=== PATIENT | female | born 1960 | race Caucasian/White ===

== ENCOUNTER 2018-11-15 10:46 | Inpatient (IN) ==
[2018-11-15] MEDS ORDERED: 0.9 % Sodium Chloride 1,000 ML IVC ONE ×2 (11:20→12:06)
--- NOTE | 2018-11-15 11:32 | Emergency Department Note ---
Disposition Clinical Impression: Marijuana abuse, Medical non-compliance, History of seizure disorder, Abnormal chest x-ray, Abnormal urinalysis, Endotracheally intubated, Hypokalemia, Abnormal EKG, Altered mental status, Hypotension Disposition: Admitted As Inpatient Time of Disposition: 15:00 General Adult HPI - General Chief complaint: ED Overdose Stated complaint: unresponsive Time Seen by Provider: 11/15/18 11:20 Source: other Limitations: physical limitation - History of Present Illness HPI Narrative: 58-year-old female reports emergency department, a police patrol officer brought her inside from the front of the ED from a truck with concerns for unresponsiveness. The police patrol officer was not sure exactly what happened, the patient's was in the truck, there are reports she has a history of seizures. On arrival to the emergency department the patient is unable to give a history. Pain Scale: 0 - Related Data Home Medications Medication Instructions Recorded Confirmed Bisoprolol/Hydrochlorothiazide 1 each PO DAILY 11/15/18 11/15/18 [Bisoprolol-Hctz 10-6.25 mg Tab] LevETIRAcetam [Keppra] 1,000 mg PO BID 11/15/18 11/15/18 Lovastatin [Mevacor] 20 mg PO HS 11/15/18 11/15/18 OXcarbazepine [Trileptal] 600 mg PO BID 11/15/18 11/15/18 Paroxetine HCl [Paxil] 40 mg PO DAILY 11/15/18 11/15/18 Topiramate [Topamax] 100 mg PO TID 11/15/18 11/15/18 Allergies Allergy/AdvReac Type Severity Reaction Status Date / Time No Known Allergies Allergy Verified 02/08/15 18:26 Limitations: ROS unobtainable due to patients medical condition Past Medical History - Past Medical History Medical history: Reports: hypertension, seizures, other Psychiatric history: Reports: no psych history [employer] history: Reports: no [employer] history - Social History Smoking Status: Current every day smoker Smokeless Tobacco Status: No Alcohol use: Reports: none Drug use: Reports: none Physical Exam - General Limitations: physical limitation General appearance: obtunded, other ([place] 7, the patient is displaying sonorous respirations with saliva about the mouth. She does not respond to verbal stimulus.) - Head Head exam: atraumatic, normocephalic, normal inspection - Eye Eye exam: Present: normal appearance, PERRL, EOMI. Absent: scleral icterus, miosis - ENT ENT exam: normal exam, normal oropharynx, mucous membranes moist, TM's normal bilaterally, normal external ear exam - Neck Neck exam: Present: normal inspection, full ROM, trachea midline - Chest Chest inspection: Present: normal inspection, symmetric chest wall rise. Absent: tenderness - Respiratory Respiratory exam: Present: other (Lungs show generally decreased breath sounds, sonorous respirations are noted.) - Cardiovascular Cardiovascular exam: Present: regular rate, normal rhythm, normal heart sounds - Abdominal Exam Abdominal exam: Present: soft, Non-Tender. Absent: tenderness, distention, guarding, rebound, rigidity, trauma - Extremities Exam Extremities exam: Present: normal inspection, full ROM, normal capillary refill. Absent: tenderness, pedal edema, joint swelling, calf tenderness - Expanded Upper Extremity Exam Shoulder exam: Present: normal inspection, full ROM Arm exam: Present: normal inspection, full ROM Elbow exam: Present: normal inspection, full ROM Forearm/Wrist exam: Present: normal inspection, full ROM Hand exam: Present: normal inspection, full ROM - Expanded Lower Extremity Exam Hip/Pelvis exam: Present: normal inspection, full ROM Upper leg exam: Present: normal inspection, full ROM Knee exam: Present: normal inspection, full ROM Lower leg exam: Present: normal inspection, full ROM Ankle exam: Present: normal inspection, full ROM Foot/toe exam: Present: normal inspection, full ROM Neurovascular/Tendon exam: Present: normal capillary refill. Absent: pulse deficit, motor deficit, sensory deficit, tendon deficit, extremity cold to touch, pallor - Back Exam Back exam: Present: normal inspection, full ROM. Absent: tenderness, CVA tenderness (R), CVA tenderness (L), vertebral tenderness - Neurological Exam Neurological exam: Present: CN II-XII intact, other (The patient occasionally moves her upper and lower extremities spontaneously. The patient does not appear to be actively convulsing.). Absent: alert, oriented X3 - Skin Skin exam: Present: warm, dry, intact, normal color Course Course Narrative: The patient's blood pressure was in the 80s systolic, IV access was established IV fluids were given blood glucose in the 190s, Narcan given with no significant improvement response. Based on the patient's sonorous respirations, Pushpa Coma Scale 7, the decision to intubate was made. Eomidate and rocuronium were given. The patient was continually monitored, initial attempts at intubation revealed probable esophageal intubation by myself., Further Visualization and Intubation attempts were Made without Success. The Patient Was Bagged and Respiratory Staff Attempted to Intubate, ET Tube Was Placed However after Reassessment It Appeared to Be Nonfunctional. The Tube Was Removed Patient Was Bagged with an Oral Airway. Third Intubation Attempt Made by Dr. Pako Martinez Who Was Able to Use a Video Scope and Successfully Placed the Tube. - Reevaluation(s) Reevaluation #1: The patient's vital signs stabilized, her came into the emergency department and reports that she has a known history of seizure disorder. He s tates she takes multiple medications which may cause sedation. She has not had a seizure for quite some time, he was bringing her to the hospital to be evaluated at an outpatient appointment when she became unresponsive. He did describe seizure-like activity but no trauma is reported. Vital Signs Pulse Rate 93 11/15/18 10:51 Blood Pressure 88/60 11/15/18 10:51 O2 Sat by Pulse Oximetry 100 11/15/18 10:51 Temperature 99.1 F 11/15/18 15:06 Pulse Rate 82 11/15/18 17:00 Respiratory Rate 17 11/15/18 17:00 Blood Pressure 128/87 11/15/18 17:00 O2 Sat by Pulse Oximetry 100 11/15/18 17:00 Oxygen Delivery Oxygen Delivery Ventilator Medical Decision Making - [facility] Narrative Medical decision making narrative: The patient was unresponsive with a Pushpa Coma Scale of 7 when she arrived, sonorous respirations were noted. The patient was endotracheally intubated and further evaluation and testing were performed. CT head negative CT cervical spine negative. Chest x-ray shows potential infiltrative changes abnormal urinalysis noted, IV fluids were given. The patient was placed on a propofol postintubation drip, she became somewhat agitated and Ativan was given 2 separate doses with Versed drip. The patient is a known history of seizure disorders and a vagal stimulator. Based on the patient's acute confusion, depressed mental status, initial hypotension, abnormal chest x-ray, abnormal urinalysis, with potential positive sepsis criteria, and a history of seizures with potential ongoing seizures and/or postictal state, I thought it would be appropriate to admit the patient to the hospital. The patient's EKG was highly abnormal, acidosis noted, hypokalemia noted. Potassium was ordered. Magnesium levels normal. Blood cultures were sent. I discussed the case with the neurology APC who came to evaluate the patient emergency department. They will act as wealth management consultant service. I discussed the case with the hospitalist on-call who has accepted the patient to their care. After consultation with the hospitalist regarding antibiotic choice, Zosyn and Flagyl were ordered but after consultation with the pharmacist, they felt Zosyn would be sufficient. The patient has QT abnormalities on her EKG, Levaquin and azithromycin were avoided as the patient is also taking other medications which may affect QT interval. The patient was given IV fluids and IV antibiotics in the emergency department. I spoke with multiple family members who are here at the bedside and answered her questions to their satisfaction. They are comfortable having the patient admitted here. The patient was admitted to the hospitalist service with neurology consult. The patient's reports the patient has not been taking her medication properly, he states that she is trying to save money and taking less medication than she has been prescribed. - Lab Data Lab results reviewed: Yes I reviewed the patient's lab results. Result diagrams: 11/15/18 10:48 11/15/18 10:48 Lab Results 11/15/18 11/15/18 11/15/18 Range/Units 10:48 10:48 10:49 WBC 11.6 H (4.3-11.1) K/mcL RBC 4.38 (3.82-4.97) M/mcL Hgb 13.5 (11.5-15.4) g/dL Hct 41.3 (35.3-44.9) % MCV 94.3 (83.0-100.0) fL MCH 30.8 (28.0-33.3) pg MCHC 32.7 (31.6-35.5) g/dL RDW 14.2 (11.5-14.5) % Plt Count 304 (140-400) K/mcL MPV 8.5 L (9.4-12.4) fL Immature Gran % 0.4 (0-4) % Seg Neutrophils % 57.3 % Lymphocytes % 34.8 % Monocytes % 6.9 % Eosinophils % 0.3 % Basophils % 0.3 % Neutrophils # 6.6 (1.6-8.9) K/mcL Lymphocytes # 4.0 (0.6-4.6) K/mcL Monocytes # 0.8 (0.0-1.3) K/mcL Eosinophils # 0.0 (0.0-0.6) K/mcL Basophils # 0.0 (0.0-0.2) K/mcL Sample Site ABG pH (7.32-7.45) pH Units ABG pCO2 (35-45) mmHg ABG pO2 (85-104) mmHg ABG HCO3 (21-27) mEq/L ABG Total CO2 (20-26) mEq/L ABG O2 Saturation (95-98) % ABG Base Excess (-2 to 3) mEq/L Jose Test Respiration Rate O2 Delivery Device Blood Gas Modality Inspired O2 (1-15=lpm [id number]=%) Tidal Volume cc PEEP cm H2O Sodium 135 L (136-145) mEq/L Potassium 2.9 L (3.5-5.1) mEq/L Chloride 100 (98-107) mEq/L Carbon Dioxide 12 L (23-29) mEq/L BUN 11 (6-20) mg/dL Creatinine 1.04 (0.60-1.20) mg/dL Est GFR ( Amer) > 60 (> 60) Est GFR (Non-Af Amer) 55 L (> 60) BUN/Creatinine Ratio 11 (6-26) Glucose 179 H (70-105) mg/dL POC Glucose 175 H (70-99) mg/dL Calculated Osmolality 284 (280-300) Lactic Acid (0.5-2.2) mmol/L Calcium 9.2 (8.6-10.3) mg/dL Magnesium 2.2 (1.6-2.6) mg/dL Total Bilirubin 0.4 (0.3-1.0) mg/dL AST 23 (13-39) Units/L ALT 11 (7-52) Units/L Alkaline Phosphatase 76 (34-104) Units/L Ammonia (16-53) mcmol/L Troponin I 0.03 (< 0.04) ng/mL C-Reactive Protein (Less than 10) mg/L Serum Total Protein 7.5 (6.4-8.9) g/dL Albumin 4.3 (3.5-5.7) g/dL Globulin 3.2 (2.4-3.5) g/dL Albumin/Globulin Ratio 1.3 (1.1-2.2) Urine Color (Yellow) Urine Clarity (Clear) Urine pH (5.0-8.0) pH Units Ur Specific Craig (1.010-1.025) Urine Protein (Neg-Trace) mg/dL Urine Glucose (UA) (Normal) mg/dL Urine Ketones (Negative) mg/dL Urine Blood (Negative) Urine Nitrite (Negative) Urine Bilirubin (Negative) Urine Urobilinogen (Normal) mg/dL Ur Leukocyte Esterase (Negative) Urine Microscopic RBC (0-3) per hpf Urine Microscopic WBC (0-3) per hpf Ur Squamous Epith Cells (None-Few) per lpf Urine Bacteria (None-Few) per hpf Hyaline Casts (None-Few) per lpf Urine Mucus (Few) Ur Culture Indicated? (NO) Salicylates (15.0-30.0) mg/dL Urine Opiates Screen (Nfdaos=767) ng/mL Ur Buprenorphine Scrn (Cutoff=5) ng/mL Acetaminophen (10-20) mcg/mL Ur Barbiturates Screen (Sjepxh=919) ng/mL Ur Phencyclidine Scrn (Cutoff=25) ng/mL Ur Amphetamines Screen (Mvhxqf=8452) ng/mL U Benzodiazepines Scrn (Glghjz=247) ng/mL Urine Cocaine Screen (Cutoff= 300) ng/mL U Marijuana (THC) Screen (Cutoff = 50) ng/mL Ur Drug Screen Interp Ethyl Alcohol (Less than 10) mg/dL 11/15/18 11/15/18 11/15/18 Range/Units 11:20 11:20 11:33 WBC (4.3-11.1) K/mcL RBC (3.82-4.97) M/mcL Hgb (11.5-15.4) g/dL Hct (35.3-44.9) % MCV (83.0-100.0) fL MCH (28.0-33.3) pg MCHC (31.6-35.5) g/dL RDW (11.5-14.5) % Plt Count (140-400) K/mcL MPV (9.4-12.4) fL Immature Gran % (0-4) % Seg Neutrophils % % Lymphocytes % % Monocytes % % Eosinophils % % Basophils % % Neutrophils # (1.6-8.9) K/mcL Lymphocytes # (0.6-4.6) K/mcL Monocytes # (0.0-1.3) K/mcL Eosinophils # (0.0-0.6) K/mcL Basophils # (0.0-0.2) K/mcL Sample Site ABG pH (7.32-7.45) pH Units ABG pCO2 (35-45) mmHg ABG pO2 (85-104) mmHg ABG HCO3 (21-27) mEq/L ABG Total CO2 (20-26) mEq/L ABG O2 Saturation (95-98) % ABG Base Excess (-2 to 3) mEq/L Jose Test Respiration Rate O2 Delivery Device Blood Gas Modality Inspired O2 (1-15=lpm gi97-624=%) Tidal Volume cc PEEP cm H2O Sodium (136-145) mEq/L Potassium (3.5-5.1) mEq/L Chloride (98-107) mEq/L Carbon Dioxide (23-29) mEq/L BUN (6-20) mg/dL Creatinine (0.60-1.20) mg/dL Est GFR ( Amer) (> 60) Est GFR (Non-Af Amer) (> 60) BUN/Creatinine Ratio (6-26) Glucose (70-105) mg/dL POC Glucose (70-99) mg/dL Calculated Osmolality (280-300) Lactic Acid 6.2 H* (0.5-2.2) mmol/L Calcium (8.6-10.3) mg/dL Magnesium (1.6-2.6) mg/dL Total Bilirubin (0.3-1.0) mg/dL AST (13-39) Units/L ALT (7-52) Units/L Alkaline Phosphatase (34-104) Units/L Ammonia (16-53) mcmol/L Troponin I (< 0.04) ng/mL C-Reactive Protein (Less than 10) mg/L Serum Total Protein (6.4-8.9) g/dL Albumin (3.5-5.7) g/dL Globulin (2.4-3.5) g/dL Albumin/Globulin Ratio (1.1-2.2) Urine Color Dark Yellow (Yellow) Urine Clarity Turbid A (Clear) Urine pH 6.0 (5.0-8.0) pH Units Ur Specific Craig 1.024 (1.010-1.025) Urine Protein >=300 H (Neg-Trace) mg/dL Urine Glucose (UA) Normal (Normal) mg/dL Urine Ketones Negative (Negative) mg/dL Urine Blood Large H (Negative) Urine Nitrite Negative (Negative) Urine Bilirubin Small H (Negative) Urine Urobilinogen Normal (Normal) mg/dL Ur Leukocyte Esterase Negative (Negative) Urine Microscopic RBC 0-3 (0-3) per hpf Urine Microscopic WBC 5-15 H (0-3) per hpf Ur Squamous Epith Cells Many H (None-Few) per lpf Urine Bacteria Few (None-Few) per hpf Hyaline Casts Moderate H (None-Few) per lpf Urine Mucus Few (Few) Ur Culture Indicated? YES A (NO) Salicylates (15.0-30.0) mg/dL Urine Opiates Screen Negative (Isbfxp=159) ng/mL Ur Buprenorphine Scrn Negative (Cutoff=5) ng/mL Acetaminophen (10-20) mcg/mL Ur Barbiturates Screen Negative (Wsczdb=415) ng/mL Ur Phencyclidine Scrn Negative (Cutoff=25) ng/mL Ur Amphetamines Screen Negative (Bhpijo=8168) ng/mL U Benzodiazepines Scrn Negative (Inadra=564) ng/mL Urine Cocaine Screen Negative (Cutoff= 300) ng/mL U Marijuana (THC) Screen Positive H (Cutoff = 50) ng/mL Ur Drug Screen Interp See Below Ethyl Alcohol (Less than 10) mg/dL 11/15/18 11/15/18 11/15/18 Range/Units 11:45 11:45 11:52 WBC (4.3-11.1) K/mcL RBC (3.82-4.97) M/mcL Hgb (11.5-15.4) g/dL Hct (35.3-44.9) % MCV (83.0-100.0) fL MCH (28.0-33.3) pg MCHC (31.6-35.5) g/dL RDW (11.5-14.5) % Plt Count (140-400) K/mcL MPV (9.4-12.4) fL Immature Gran % (0-4) % Seg Neutrophils % % Lymphocytes % % Monocytes % % Eosinophils % % Basophils % % Neutrophils # (1.6-8.9) K/mcL Lymphocytes # (0.6-4.6) K/mcL Monocytes # (0.0-1.3) K/mcL Eosinophils # (0.0-0.6) K/mcL Basophils # (0.0-0.2) K/mcL Sample Site R Brach ABG pH 7.34 (7.32-7.45) pH Units ABG pCO2 36 (35-45) mmHg ABG pO2 128 H (85-104) mmHg ABG HCO3 19 L (21-27) mEq/L ABG Total CO2 20 (20-26) mEq/L ABG O2 Saturation 99 H (95-98) % ABG Base Excess -6 L (-2 to 3) mEq/L Jose Test N/A Respiration Rate 14 O2 Delivery Device AeroMask Blood Gas Modality ASSIST CONTROL Inspired O2 60.0 (1-15=lpm [id number]=%) Tidal Volume 450 cc PEEP 5 cm H2O Sodium (136-145) mEq/L Potassium (3.5-5.1) mEq/L Chloride (98-107) mEq/L Carbon Dioxide (23-29) mEq/L BUN (6-20) mg/dL Creatinine (0.60-1.20) mg/dL Est GFR ( Amer) (> 60) Est GFR (Non-Af Amer) (> 60) BUN/Creatinine Ratio (6-26) Glucose (70-105) mg/dL POC Glucose (70-99) mg/dL Calculated Osmolality (280-300) Lactic Acid (0.5-2.2) mmol/L Calcium (8.6-10.3) mg/dL Magnesium (1.6-2.6) mg/dL Total Bilirubin (0.3-1.0) mg/dL AST (13-39) Units/L ALT (7-52) Units/L Alkaline Phosphatase (34-104) Units/L Ammonia (16-53) mcmol/L Troponin I (< 0.04) ng/mL C-Reactive Protein < 5 (Less than 10) mg/L Serum Total Protein (6.4-8.9) g/dL Albumin (3.5-5.7) g/dL Globulin (2.4-3.5) g/dL Albumin/Globulin Ratio (1.1-2.2) Urine Color (Yellow) Urine Clarity (Clear) Urine pH (5.0-8.0) pH Units Ur Specific Craig (1.010-1.025) Urine Protein (Neg-Trace) mg/dL Urine Glucose (UA) (Normal) mg/dL Urine Ketones (Negative) mg/dL Urine Blood (Negative) Urine Nitrite (Negative) Urine Bilirubin (Negative) Urine Urobilinogen (Normal) mg/dL Ur Leukocyte Esterase (Negative) Urine Microscopic RBC (0-3) per hpf Urine Microscopic WBC (0-3) per hpf Ur Squamous Epith Cells (None-Few) per lpf Urine Bacteria (None-Few) per hpf Hyaline Casts (None-Few) per lpf Urine Mucus (Few) Ur Culture Indicated? (NO) Salicylates < 2.5 L (15.0-30.0) mg/dL Urine Opiates Screen (Qvetcn=609) ng/mL Ur Buprenorphine Scrn (Cutoff=5) ng/mL Acetaminophen < 10 L (10-20) mcg/mL Ur Barbiturates Screen (Wjumhq=005) ng/mL Ur Phencyclidine Scrn (Cutoff=25) ng/mL Ur Amphetamines Screen (Ucjbnh=7196) ng/mL U Benzodiazepines Scrn (Distbh=237) ng/mL Urine Cocaine Screen (Cutoff= 300) ng/mL U Marijuana (THC) Screen (Cutoff = 50) ng/mL Ur Drug Screen Interp Ethyl Alcohol < 10 (Less than 10) mg/dL 11/15/18 Range/Units 12:05 WBC (4.3-11.1) K/mcL RBC (3.82-4.97) M/mcL Hgb (11.5-15.4) g/dL Hct (35.3-44.9) % MCV (83.0-100.0) fL MCH (28.0-33.3) pg MCHC (31.6-35.5) g/dL RDW (11.5-14.5) % Plt Count (140-400) K/mcL MPV (9.4-12.4) fL Immature Gran % (0-4) % Seg Neutrophils % % Lymphocytes % % Monocytes % % Eosinophils % % Basophils % % Neutrophils # (1.6-8.9) K/mcL Lymphocytes # (0.6-4.6) K/mcL Monocytes # (0.0-1.3) K/mcL Eosinophils # (0.0-0.6) K/mcL Basophils # (0.0-0.2) K/mcL Sample Site ABG pH (7.32-7.45) pH Units ABG pCO2 (35-45) mmHg ABG pO2 (85-104) mmHg ABG HCO3 (21-27) mEq/L ABG Total CO2 (20-26) mEq/L ABG O2 Saturation (95-98) % ABG Base Excess (-2 to 3) mEq/L Jose Test Respiration Rate O2 Delivery Device Blood Gas Modality Inspired O2 (1-15=lpm [id number]=%) Tidal Volume cc PEEP cm H2O Sodium (136-145) mEq/L Potassium (3.5-5.1) mEq/L Chloride (98-107) mEq/L Carbon Dioxide (23-29) mEq/L BUN (6-20) mg/dL Creatinine (0.60-1.20) mg/dL Est GFR ( Amer) (> 60) Est GFR (Non-Af Amer) (> 60) BUN/Creatinine Ratio (6-26) Glucose (70-105) mg/dL POC Glucose (70-99) mg/dL Calculated Osmolality (280-300) Lactic Acid (0.5-2.2) mmol/L Calcium (8.6-10.3) mg/dL Magnesium (1.6-2.6) mg/dL Total Bilirubin (0.3-1.0) mg/dL AST (13-39) Units/L ALT (7-52) Units/L Alkaline Phosphatase (34-104) Units/L Ammonia 52 (16-53) mcmol/L Troponin I (< 0.04) ng/mL C-Reactive Protein (Less than 10) mg/L Serum Total Protein (6.4-8.9) g/dL Albumin (3.5-5.7) g/dL Globulin (2.4-3.5) g/dL Albumin/Globulin Ratio (1.1-2.2) Urine Color (Yellow) Urine Clarity (Clear) Urine pH (5.0-8.0) pH Units Ur Specific Craig (1.010-1.025) Urine Protein (Neg-Trace) mg/dL Urine Glucose (UA) (Normal) mg/dL Urine Ketones (Negative) mg/dL Urine Blood (Negative) Urine Nitrite (Negative) Urine Bilirubin (Negative) Urine Urobilinogen (Normal) mg/dL Ur Leukocyte Esterase (Negative) Urine Microscopic RBC (0-3) per hpf Urine Microscopic WBC (0-3) per hpf Ur Squamous Epith Cells (None-Few) per lpf Urine Bacteria (None-Few) per hpf Hyaline Casts (None-Few) per lpf Urine Mucus (Few) Ur Culture Indicated? (NO) Salicylates (15.0-30.0) mg/dL Urine Opiates Screen (Woltct=850) ng/mL Ur Buprenorphine Scrn (Cutoff=5) ng/mL Acetaminophen (10-20) mcg/mL Ur Barbiturates Screen (Gkollz=816) ng/mL Ur Phencyclidine Scrn (Cutoff=25) ng/mL Ur Amphetamines Screen (Txpahx=1568) ng/mL U Benzodiazepines Scrn (Qdhjcz=239) ng/mL Urine Cocaine Screen (Cutoff= 300) ng/mL U Marijuana (THC) Screen (Cutoff = 50) ng/mL Ur Drug Screen Interp Ethyl Alcohol (Less than 10) mg/dL - Radiology Data Radiology results reviewed: Yes I reviewed the patient's radiology results.
[2018-11-15] MEDS ORDERED: *HR* LORazepam 2 MG/ML VIAL ONE ×2 (11:41→11:56)
[2018-11-15 11:43] LABS: Bilirubin,Urine Small (Negative); Blood,Urine Large (Negative); Clarity,Urine Turbid (Clear); Color,Urine Dark Yellow (Yellow); Glucose,Urine (UA) Normal (Normal); Ketones,Urine Negative (Negative); Leukocyte Esterase,Urine Negative (Negative); Nitrite,Urine Negative (Negative); Protein,Urine >=300 mg/dL (Neg-Trace); Specific Gravity,Urine 1.024 (1.010-1.025); Urobilinogen,Urine Normal (Normal)
[2018-11-15 11:46] LABS: Bacteria,Urine Few per hpf (None-Few); Hyaline Casts,Urine Moderate per lpf (None-Few); Squamous Epithelial Cell,Urine Many per lpf (None-Few)
[2018-11-15 11:46] LABS: Basophils % 0.3 %; Eosinophils % 0.3 %; Hematocrit 41.3 % (35.3-44.9); Hemoglobin 13.5 g/dL (11.5-15.4); Immature Granulocytes % 0.4 % (0-4); Lymphocytes % 34.8 %; Mean Corpuscular HGB Conc 32.7 g/dL (31.6-35.5); Mean Corpuscular Hemoglobin 30.8 pg (28.0-33.3); Mean Corpuscular Volume 94.3 fL (83.0-100.0); Mean Platelet Volume 8.5 fL (9.4-12.4); Monocytes # 0.8 K/mcL (0.0-1.3); Monocytes % 6.9 %; Neutrophils # 6.6 K/mcL (1.6-8.9); Platelet Count 304 K/mcL (140-400); Red Blood Count 4.38 M/mcL (3.82-4.97); Red Cell Distribution Width 14.2 % (11.5-14.5); Segmented Neutrophils % 57.3 %; White Blood Count 11.6 K/mcL (4.3-11.1)
[2018-11-15] MEDS ORDERED: *HR* LORazepam 2 MG/ML VIAL IVP ONE ×2 (11:54→11:55)
--- NOTE | 2018-11-15 11:57 | Emergency Department Note ---
START Narrative - START START: Procedure: Endotracheal intubation Indications: Respiratory distress Consent: Consent was implied due to the emergent nature of the procedure Procedure summary: I was called to the room for help in a difficult airway situation after multiple attempts. The endotracheal tube that was in place upon my arrival seemed to be in the esophagus as the stomach had significant distention with each breath that was given via the Ambu bag. The tube was removed. I used a 7 on a half Persian endotracheal tube and placed it into the trachea using the D blade and video laryngoscopy. The tube was visualized going through the cords. There was edema present to the soft tissue of the larynx. Color changes noted on exhalation. Vital signs stabilized. Breath sounds were heard bilaterally. X-ray at bedside showed confirmation of ET tube.
[2018-11-15 11:58] LABS: ABG Base Excess -6 mEq/L (-2 to 3); ABG HCO3 19 mEq/L (21-27); ABG Oxygen Saturation 99 % (95-98); ABG PCO2 36 mmHg (35-45); ABG PH 7.34 pH Units (7.32-7.45); ABG PO2 128 mmHg (85-104); ABG TCO2 20 mEq/L (20-26); Blood Gas Modality ASSIST CONTROL; Blood Gas PEEP 5 cm H2O; Blood Gas VT 450 cc
[2018-11-15 12:01] LABS: Mucus,Urine Few (Few); RBC,Urine 0-3 per hpf (0-3)
[2018-11-15] MEDS ORDERED: 0.9 % Sodium Chloride 500 ML IVC ONE (12:06)
[2018-11-15 12:35] LABS: Alanine Aminotransferase 11 Units/L (7-52); Albumin 4.3 g/dL (3.5-5.7); Albumin/Globulin Ratio 1.3 (1.1-2.2); Alkaline Phosphatase 76 Units/L (34-104); Aspartate Amino Transferase 23 Units/L (13-39); BUN/Creatinine Ratio 11 (6-26); Bilirubin,Total 0.4 mg/dL (0.3-1.0); Blood Urea Nitrogen 11 mg/dL (6-20); Calcium 9.2 mg/dL (8.6-10.3); Carbon Dioxide 12 mEq/L (23-29); Chloride 100 mEq/L (98-107); Globulin 3.2 g/dL (2.4-3.5); Glucose 179 mg/dL (70-105); Osmolality,Calculated 284 (280-300); Potassium 2.9 mEq/L (3.5-5.1); Sodium 135 mEq/L (136-145); Total Protein 7.5 g/dL (6.4-8.9); Troponin I 0.03 ng/mL (< 0.04); eGFR For African Americans > 60 (> 60); eGFR For Non-African Americans 55 (> 60)
[2018-11-15 12:45] LABS: Acetaminophen < 10 mcg/mL (10-20); Ethanol < 10 mg/dL (Less than 10); Salicylate < 2.5 mg/dL (15.0-30.0)
[2018-11-15 13:09] LABS: Amphetamine Screen,Urine Negative ng/mL (Cutoff=1000); Barbiturate Screen,Urine Negative ng/mL (Cutoff=200); Benzodiazepines Screen,Urine Negative ng/mL (Cutoff=200); Cannabinoid Screen,Urine Positive ng/mL (Cutoff = 50); Cocaine Screen,Urine Negative ng/mL (Cutoff= 300); Opiate Screen,Urine Negative ng/mL (Cutoff=300); Phencyclidine Screen,Urine Negative ng/mL (Cutoff=25)
[2018-11-15] MEDS ORDERED: 0.9 % Sodium Chloride 1,000 ML ONE (13:24)
[2018-11-15] MEDS ORDERED: Potassium Chloride Elixir 20 MEQ/15 ML UDC PO ONE (13:36)
[2018-11-15] MEDS ORDERED: cefTRIAXone 1,000 MG in Water for inj. (sterile) 10 ML IVP ONE (13:53)
[2018-11-15] MEDS ORDERED: Azithromycin 500 MG in 0.9 % Sodium Chloride 250 ML IVPB ONE (13:53)
--- NOTE | 2018-11-15 14:03 | Neurology - Consult Note ---
<Billy Marion J - Last Filed: 11/15/18 13:52> Date of Encounter: 11/15/18 Time of Encounter: 13:52 Assessment and Plan (1) Unresponsive Current Visit: Yes Status: Acute (2) Seizures Current Visit: Yes Status: Acute Neurology c/s with concerns for seizures Patient was A&Ox3 this morning and reports urinary incontinence overnight and concerned for seizrues She see's Dr. Morgan in the Neurology clinic and was supposed to have f/u today but developed AMS and an unresponsive state Family unsure of medication compliance No witnessed seizure activity Hypokalemic 2.9, lactic acidosis 6.2, She is currently taking Trileptal, Keppra and Topamax. Has a VNS as well We are recommending continuation of home medications at home doses; will need OG or NG to facilitate Neurological exam is limited by patients current state; she is intubated and sedated with propofol and versed At this time we are recommending EEG Will order keppra and trileptal levels Implement seizure precautions PRN Ativan for breakthrough seizures continuous tele monitoring recommended Neurology will continue to follow; further recommendations pending w/u Otherwise continue with medical and supportive care History of Present Illness Chief complaint: unresponsive, seizures HPI: Ms. Flores is a 58 year old female with a PMH of headaches, seizures and HTN. Neurology was consulted for seizure evaluation. Currently she is intubated and is uanble to provide HPI and as such the HPI information was obtained from family and provider to provider report. Her family reports that she awoke this morning and reported to them she urinated herself last night and she thought she may have had another seizure. They note that she has had a weekly seizures for approximately 1-month duration. She see's Dr. Morgan in the Neurology clinic and is currently on Trileptal, Keppra and Topamax with a VNS as well and family reports adequate control of seizures until 1-month ago. Her significant other notes that she was on her way to her scheduled neurology visit this morning and she developed altered mental status, respiratory distress and a sudden unresponsive state. While in the ED she was noted to be hypotensive and in respiratory distress and d/t unresponsive state she was intubated. She has not had any witnessed seizure activity. Her workup includes a negative CT head and an unremarkable CT of the cervical spine. Additionally she was found to be hypokalemic with a serum potassium of 2.9. Her lactic acid was elevated at 6.2 and she has a mild leukocytosis of 11.2. The CXR is suspicious for PNA showing patchy bronchial thickening and prominent interstitial changes seen which may be related to multifocal pneumonia within the left suprahilar and right perihilar region. Past Med Surg Social Fam HX - Past Medical History Medical history: hypertension, seizures, other Additional medical history: EPILEPSY, HTN Psychiatric history: no psych history - Past Surgical History Additional surgical history: , VNS FOR EPILEPSY, CHOLECYSTECTOMY - Social History Smoking Status: Current every day smoker Smokeless Tobacco Status: No Alcohol use: none Drug use: none - Family History Mother Hx Family Cardiac Disorders: Yes (HTN) Hx Family Endocrine Disorder: Yes (DM) Father Hx Family Cancer: Yes Medications and Allergies Bisoprolol/Hydrochlorothiazide [Bisoprolol-Hctz 10-6.25 mg Tab] 1 each PO DAILY 11/15/18 [History] LevETIRAcetam [Keppra] 1,000 mg PO BID 11/15/18 [History] Lovastatin [Mevacor] 20 mg PO HS 11/15/18 [History] OXcarbazepine [Trileptal] 600 mg PO BID 11/15/18 [History] Paroxetine HCl [Paxil] 40 mg PO DAILY 11/15/18 [History] Topiramate [Topamax] 100 mg PO TID 11/15/18 [History] Allergy/AdvReac Type Severity Reaction Status Date / Time No Known Allergies Allergy Verified 02/08/15 18:26 ROS unobtainable: other (ROS obtained by assistance of family) All Systems: The remainder of the systems were reviewed and are negative Review of Systems: REVIEW OF SYSTEMS obtained with family assistance GENERAL: Negative for any nausea, vomiting, fevers, chills NEUROLOGIC: Negative for any blurry vision, blind spots, double vision, facial asymmetry, dysphagia, dysarthria, hemiparesis, hemisensory deficits, vertigo, ataxia,, tingling, numbness, unilateral weakness or numbness/tingling POSITIVE- altered mental status, unresponsive state query seizures HEENT: Negative for any head trauma, neck trauma, neck stiffness : urinary incontinence overnight The remainder of the review of systems reviewed and found to be negative Physical Examination - Vital Signs Vital Signs: Initial Vital Signs Pulse BP Pulse Ox 93 88/60 100 11/15/18 10:51 11/15/18 10:51 11/15/18 10:51 - Exam Exam: Examination: The neurological exam is limited as the patient is intubated and on sedation General Examination: *CONSTITUTIONAL: sedated *GENERAL APPEARANCE OF PATIENT appears healthy and well groomed overall *EYES: pupils equal, round, reactive to light and accommodation, conjunctiva clear without masses or ulcerations, fundi normal. *CARDIOVASCULAR: no peripheral edema, distal temperature normal, dorsalis pedis pulses normal. Refer to vital signs * MUSCULOSKELETAL: *GAIT AND STATION: Deferred *ASSESSMENT OF MUSCLE STRENGTH IN THE UPPER AND LOWER EXTREMITIES No spontaneous movement and no movement with noxious stimulus *MUSCLE TONE IN THE UPPER AND LOWER EXTREMITIES normal. No abnormal movements, fasciculations or atrophy identified. Neurological: *ATTENTION AND CONCENTRATION are abnormal and patient is intubated and sedated *CN II optic fundi were normal, no papilledema noted. *CN III,IV, PERRLA, doll's eyes intact, and no ptosis noted. *CN V shows normal sensation and jaw opens symmetrically. *CN XI normal strength in the sternocleidomastoid muscles moves head from [id number] with noxious stimulus *CN XII gag intact *SENSORY EXAMINATION light touch intact *REFLEXES: deep tendon reflexes were normal and symmetrical , grade 1/4 diffusely, no pathological reflexes were noted. Results - Laboratory Findings CBC and BMP: 11/15/18 10:48 11/15/18 10:48 Abnormal lab findings: Abnormal lab results WBC 11.6 K/mcL (4.3-11.1) H 11/15/18 10:48 MPV 8.5 fL (9.4-12.4) L 11/15/18 10:48 ABG pO2 128 mmHg (85-104) H 11/15/18 11:52 ABG HCO3 19 mEq/L (21-27) L 11/15/18 11:52 ABG O2 Saturation 99 % (95-98) H 11/15/18 11:52 ABG Base Excess -6 mEq/L (-2 to 3) L 11/15/18 11:52 Sodium 135 mEq/L (136-145) L 11/15/18 10:48 Potassium 2.9 mEq/L (3.5-5.1) L 11/15/18 10:48 Carbon Dioxide 12 mEq/L (23-29) L 11/15/18 10:48 Est GFR (Non-Af Amer) 55 (> 60) L 11/15/18 10:48 Glucose 179 mg/dL (70-105) H 11/15/18 10:48 POC Glucose 175 mg/dL (70-99) H 11/15/18 10:49 Lactic Acid 6.2 mmol/L (0.5-2.2) H* 11/15/18 11:33 Urine Clarity Turbid (Clear) A 11/15/18 11:20 Urine Protein >=300 mg/dL (Neg-Trace) H 11/15/18 11:20 Urine Blood Large (Negative) H 11/15/18 11:20 Urine Bilirubin Small (Negative) H 11/15/18 11:20 Urine Microscopic WBC 5-15 per hpf (0-3) H 11/15/18 11:20 Ur Squamous Epith Cells Many per lpf (None-Few) H 11/15/18 11:20 Hyaline Casts Moderate per lpf (None-Few) H 11/15/18 11:20 Ur Culture Indicated? YES (NO) A 11/15/18 11:20 Salicylates < 2.5 mg/dL (15.0-30.0) L 11/15/18 11:45 Acetaminophen < 10 mcg/mL (10-20) L 11/15/18 11:45 U Marijuana (THC) Screen Positive ng/mL (Cutoff = 50) H 11/15/18 11:20 - Diagnostic Findings Additional findings: IMPRESSION: Patchy bronchial thickening and prominent interstitial changes seen which may be related to multifocal pneumonia within the left suprahilar and right perihilar region. Consult Discharge Plan - Plan Referrals: Corbin Valiente [Primary Care Provider] - <Hayde Velazquez I - Last Filed: 11/15/18 16:27> Date of Encounter: 11/15/18 Assessment and Plan (1) Unresponsive Current Visit: Yes Status: Acute (2) Seizures Current Visit: Yes Status: Acute I have personally performed a face to face diagnostic evaluation, including HPI, EXAM, which is included in the Assesment and plan, which was discussed with Billy Marion, AUTO ADJUDICATION SPECIALIST, I agree with the above outlined documentation. Patient is currently intubated and sedated EEG is negative for any continue seizure We will repeat EEG in the morning suggest continue all antiepileptic medication at the home dose Hayde Velazquez MD. Neurology History of Present Illness HPI: Ms. Flores is a 58 year old female All Systems: The remainder of the systems were reviewed and are negative Physical Examination - Vital Signs Vital Signs: Initial Vital Signs Pulse BP Pulse Ox 93 88/60 100 11/15/18 10:51 11/15/18 10:51 11/15/18 10:51 Results - Laboratory Findings CBC and BMP: 11/15/18 10:48 11/15/18 10:48 Abnormal lab findings: Abnormal lab results WBC 11.6 K/mcL (4.3-11.1) H 11/15/18 10:48 MPV 8.5 fL (9.4-12.4) L 11/15/18 10:48 ABG pO2 128 mmHg (85-104) H 11/15/18 11:52 ABG HCO3 19 mEq/L (21-27) L 11/15/18 11:52 ABG O2 Saturation 99 % (95-98) H 11/15/18 11:52 ABG Base Excess -6 mEq/L (-2 to 3) L 11/15/18 11:52 Sodium 135 mEq/L (136-145) L 11/15/18 10:48 Potassium 2.9 mEq/L (3.5-5.1) L 11/15/18 10:48 Carbon Dioxide 12 mEq/L (23-29) L 11/15/18 10:48 Est GFR (Non-Af Amer) 55 (> 60) L 11/15/18 10:48 Glucose 179 mg/dL (70-105) H 11/15/18 10:48 POC Glucose 114 mg/dL (70-99) H 11/15/18 15:06 Lactic Acid 6.2 mmol/L (0.5-2.2) H* 11/15/18 11:33 Urine Clarity Turbid (Clear) A 11/15/18 11:20 Urine Protein >=300 mg/dL (Neg-Trace) H 11/15/18 11:20 Urine Blood Large (Negative) H 11/15/18 11:20 Urine Bilirubin Small (Negative) H 11/15/18 11:20 Urine Microscopic WBC 5-15 per hpf (0-3) H 11/15/18 11:20 Ur Squamous Epith Cells Many per lpf (None-Few) H 11/15/18 11:20 Hyaline Casts Moderate per lpf (None-Few) H 11/15/18 11:20 Ur Culture Indicated? YES (NO) A 11/15/18 11:20 Salicylates < 2.5 mg/dL (15.0-30.0) L 11/15/18 11:45 Acetaminophen < 10 mcg/mL (10-20) L 11/15/18 11:45 U Marijuana (THC) Screen Positive ng/mL (Cutoff = 50) H 11/15/18 11:20
[2018-11-15 14:04] LABS: Magnesium 2.2 mg/dL (1.6-2.6)
[2018-11-15] MEDS ORDERED: Piperacillin/Tazobactam 3.375 GM in Water for inj. (sterile) 20 ML IVP ONE (14:05)
[2018-11-15] MEDS ORDERED: MetroNIDAZOLE 500 MG/100 ML 500 MG/100 ML BAG IVPB ONE (14:05)
--- NOTE | 2018-11-15 14:42 | Pulmonology History & Physical ---
<Adolfo Maynard - Last Filed: 11/15/18 16:00> Date of Encounter: 11/15/18 Time of Encounter: 14:36 History of Present Illness Chief complaint: Unresponsive HPI: Ms. Flores is a 58 year old female with a known history of seizure disorder with internal vagal stimulator device on Trileptal, Topamax, Keppra prescribed by Dr. Morgan with frequent follow-up visits. The patient also has hypertension and anxiety/depression and is on bisoprolol/hydrochlorothiazide, Paxil, and lovastatin. Patient has no known drug allergies. The patient her were driving to the hospital today for an outpatient follow-up with Dr. Morgan for medication refill when the patient began having a seizure event. The states that the event lasted approximately 15 minutes which is longer than the patient's typical seizures he states that she began foaming at the mouth which is unusual for her and these episodes. They presented to the ED with the patient was refractory to 4 mg of Ativan and the decision was made for emergency intubation. 2 attempts by attending physician and respiratory therapist failed to achieve the intubation and a third attempt by second attending was successful. Rocuronium and etomidate were used as sedating paralytic agents. Patient appeared to be intolerant to propofol only as she was not well sedated and a Versed drip was added at that time which has kept the patient sedated to a Corea scale approximately 3. Laboratory analysis the ED revealed a lactic acid of 6.2 which may be due to seizure activity, however given the fact that the patient has an x-ray finding which is concerning for multifocal pneumonia of bilateral lungs this could also be infectious in nature. The patient was started on Flagyl and Zosyn in the ED for management of multifocal pneumonia. Patient was also found to be hypokalemic which the states is been a recurring event for the patient at a value of 2.9. 40 mEq were given down the patient's NG tube for replacement. She was also positive for marijuana on toxicology screen. Neurology is aware of the patient's arrival here in the ED and neurology nurse practitioner Billy Marion examined the patient in the ED and placed orders for drug levels of her various anti-epileptic medications. EEG has been ordered. The states that for the past 2-3 days the patient's been complaining of "not feeling well". The patient noted that last night the patient urinated on herself and stated that she believes that she may have had another seizure. She is also complained of worsening cramping over the past 2 days but he denies any known complaints of chest pain, shortness of breath, nausea vomiting fevers or any other concerns or complaints. The states that the patient has been on Keppra for approximately one year and that it appeared to have greatly reduced the number and duration of her seizures. However the patient's does state that as they pay for these medications out of pocket that his will frequently misses doses for medication in an attempt to make them last longer. Upon my initial evaluation the patient is sedated, intubated, mechanically ventilated in the trauma 1 room of the emergency department. Her pupils are equal reactive to light, she does not track. Trachea is midline and supple, vitals appear normal on the monitor. There is diffuse rhonchi noted bilaterally to my auscultation which is exacerbated by the mechanical ventilation. Heart rate rhythm is regular, bowel sounds are present in the abdomen is soft nontender nondistended. There are strong peripheral pulses noted without extremity edema. The patient is noncyanotic, nondiaphoretic, there are no external signs of trauma. Assessment and plan: 1. Seizures: The patient is intubated and mechanically ventilated with a Versed drip for sedation due to status epilepticus. Patient will receive EEG stat by neurology Neurology is consulted and is following Continue sedation Restart patient's home antiepileptic medications 2. Multifocal pneumonia: Flagyl plus Zosyn for antibiotic coverage 2.5 L of fluid given per sepsis protocol-Continue maintenance IV fluids Daily chest x-ray to monitor 3. Lactic acidosis: Likely secondary to seizure-possibly infectious in nature Time lactic acid has been placed we will continue to trend 4. Hypokalemia: 40 milliequivalents potassium chloride given through NG tube in the ED. Continue to monitor BMP 5. Mechanical ventilation Vent bundle with daily care protocol Continue restraint orders 6. DVT prophylaxis Heparin 5000 units 3 times a day Past Med Surg Social Fam HX - Past Medical History Medical history: hypertension, seizures, other Additional medical history: EPILEPSY, HTN Psychiatric history: no psych history - Past Surgical History Additional surgical history: , VNS FOR EPILEPSY, CHOLECYSTECTOMY - Social History Smoking Status: Current every day smoker Smokeless Tobacco Status: No Alcohol use: none Drug use: none - Family History Mother Hx Family Cardiac Disorders: Yes (HTN) Hx Family Endocrine Disorder: Yes (DM) Father Hx Family Cancer: Yes Medications and Allergies Bisoprolol/Hydrochlorothiazide [Bisoprolol-Hctz 10-6.25 mg Tab] 1 each PO DAILY 11/15/18 [History] LevETIRAcetam [Keppra] 1,000 mg PO BID 11/15/18 [History] Lovastatin [Mevacor] 20 mg PO HS 11/15/18 [History] OXcarbazepine [Trileptal] 600 mg PO BID 11/15/18 [History] Paroxetine HCl [Paxil] 40 mg PO DAILY 11/15/18 [History] Topiramate [Topamax] 100 mg PO TID 11/15/18 [History] Allergy/AdvReac Type Severity Reaction Status Date / Time No Known Allergies Allergy Verified 02/08/15 18:26 ROS unobtainable: due to endotracheal tube, due to mental status All Systems: The remainder of the systems were reviewed and are negative Physical Examination Vital Signs: Vital Signs, Last 4 Hours Temp Pulse Resp BP Pulse Ox 11/15/18 13:38 78 124/86 100 11/15/18 13:20 80 17 126/84 11/15/18 11:30 97.9 F 88 16 128/88 99 11/15/18 11:10 192/105 11/15/18 11:06 106 184/98 94 11/15/18 10:57 97.6 F 93 6 88/60 100 11/15/18 10:56 83 123/86 100 11/15/18 10:51 93 88/60 100 General appearance: comatose Eyes: nonicteric ENT: oropharynx moist Neck: supple Effort: other (Intubated and mechanically ventilated) Auscultation: bilateral: rhonchi Cardiovascular: regular rate and rhythm Gastrointestinal: normoactive bowel sounds, soft, non-tender, non-distended Integumentary: normal Extremities: no cyanosis, no edema, no clubbing, pink and warm, pulses normal, no ischemia or petechiae Musculoskeletal: no deformities unable to assess due to mental status Results - Laboratory Findings CBC and BMP: 11/15/18 10:48 11/15/18 10:48 ABG ABG pH 7.34 pH Units (7.32-7.45) 11/15/18 11:52 ABG pCO2 36 mmHg (35-45) 11/15/18 11:52 ABG pO2 128 mmHg (85-104) H 11/15/18 11:52 ABG O2 Saturation 99 % (95-98) H 11/15/18 11:52 Abnormal lab findings: Abnormal lab results WBC 11.6 K/mcL (4.3-11.1) H 11/15/18 10:48 MPV 8.5 fL (9.4-12.4) L 11/15/18 10:48 ABG pO2 128 mmHg (85-104) H 11/15/18 11:52 ABG HCO3 19 mEq/L (21-27) L 11/15/18 11:52 ABG O2 Saturation 99 % (95-98) H 11/15/18 11:52 ABG Base Excess -6 mEq/L (-2 to 3) L 11/15/18 11:52 Sodium 135 mEq/L (136-145) L 11/15/18 10:48 Potassium 2.9 mEq/L (3.5-5.1) L 11/15/18 10:48 Carbon Dioxide 12 mEq/L (23-29) L 11/15/18 10:48 Est GFR (Non-Af Amer) 55 (> 60) L 11/15/18 10:48 Glucose 179 mg/dL (70-105) H 11/15/18 10:48 POC Glucose 175 mg/dL (70-99) H 11/15/18 10:49 Lactic Acid 6.2 mmol/L (0.5-2.2) H* 11/15/18 11:33 Urine Clarity Turbid (Clear) A 11/15/18 11:20 Urine Protein >=300 mg/dL (Neg-Trace) H 11/15/18 11:20 Urine Blood Large (Negative) H 11/15/18 11:20 Urine Bilirubin Small (Negative) H 11/15/18 11:20 Urine Microscopic WBC 5-15 per hpf (0-3) H 11/15/18 11:20 Ur Squamous Epith Cells Many per lpf (None-Few) H 11/15/18 11:20 Hyaline Casts Moderate per lpf (None-Few) H 11/15/18 11:20 Ur Culture Indicated? YES (NO) A 11/15/18 11:20 Salicylates < 2.5 mg/dL (15.0-30.0) L 11/15/18 11:45 Acetaminophen < 10 mcg/mL (10-20) L 11/15/18 11:45 U Marijuana (THC) Screen Positive ng/mL (Cutoff = 50) H 11/15/18 11:20 <Hetal Hwang M - Last Filed: 11/16/18 15:30> Date of Encounter: 11/15/18 History of Present Illness HPI: Ms. Flores is a 58 year old female All Systems: The remainder of the systems were reviewed and are negative Physical Examination Vital Signs: Vital Signs, Last 4 Hours Temp Pulse Resp BP Pulse Ox 11/15/18 16:00 79 17 134/92 100 11/15/18 15:58 18 129/88 100 11/15/18 15:06 99.1 F 76 17 128/79 100 11/15/18 14:47 79 127/88 100 11/15/18 14:26 79 11/15/18 13:38 78 124/86 100 11/15/18 13:20 80 17 126/84 Results - Laboratory Findings CBC and BMP: 11/16/18 04:45 11/16/18 03:53 ABG ABG pH 7.34 pH Units (7.32-7.45) 11/15/18 11:52 ABG pCO2 36 mmHg (35-45) 11/15/18 11:52 ABG pO2 128 mmHg (85-104) H 11/15/18 11:52 ABG O2 Saturation 99 % (95-98) H 11/15/18 11:52 Abnormal lab findings: Abnormal lab results WBC 11.6 K/mcL (4.3-11.1) H 11/15/18 10:48 MPV 8.5 fL (9.4-12.4) L 11/15/18 10:48 ABG pO2 128 mmHg (85-104) H 11/15/18 11:52 ABG HCO3 19 mEq/L (21-27) L 11/15/18 11:52 ABG O2 Saturation 99 % (95-98) H 11/15/18 11:52 ABG Base Excess -6 mEq/L (-2 to 3) L 11/15/18 11:52 Sodium 135 mEq/L (136-145) L 11/15/18 10:48 Potassium 2.9 mEq/L (3.5-5.1) L 11/15/18 10:48 Carbon Dioxide 12 mEq/L (23-29) L 11/15/18 10:48 Est GFR (Non-Af Amer) 55 (> 60) L 11/15/18 10:48 Glucose 179 mg/dL (70-105) H 11/15/18 10:48 POC Glucose 114 mg/dL (70-99) H 11/15/18 15:06 Lactic Acid 2.9 mmol/L (0.5-2.2) H 11/15/18 15:51 Urine Clarity Turbid (Clear) A 11/15/18 11:20 Urine Protein >=300 mg/dL (Neg-Trace) H 11/15/18 11:20 Urine Blood Large (Negative) H 11/15/18 11:20 Urine Bilirubin Small (Negative) H 11/15/18 11:20 Urine Microscopic WBC 5-15 per hpf (0-3) H 11/15/18 11:20 Ur Squamous Epith Cells Many per lpf (None-Few) H 11/15/18 11:20 Hyaline Casts Moderate per lpf (None-Few) H 11/15/18 11:20 Ur Culture Indicated? YES (NO) A 11/15/18 11:20 Salicylates < 2.5 mg/dL (15.0-30.0) L 11/15/18 11:45 Acetaminophen < 10 mcg/mL (10-20) L 11/15/18 11:45 Levetiracetam < 3 mcg/mL (6-46) L 11/15/18 15:51 U Marijuana (THC) Screen Positive ng/mL (Cutoff = 50) H 11/15/18 11:20 - Attending Attestation I examined this patient and my medical decision-making was reviewed with the Resident Physician. I agree with the documented findings, disposition and treatment plan as described except to the extent set forth below. Patient seen and examined. Labs, radiology, chart personally reviewed. 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 Neurology consultation and patient is to be better compliance. EEG has been done at the bedside at this time and there is evidence of status epilepticus with no control, she will need to be transferred and to have continuous EEG monitoring. I am hoping with the sedation and it will control her seizure and tell her antiepileptic medication is working. Pulmonary: Acceptable oxygenation and ventilation. Repeat ABG and patient is deeply sedated and she will be on the ventilator. Suspect patient has COPD and will be on bronchodilators. I believe this will be an easy extubation once the seizure under control. I do not feel patient had COPD exacerbation and no need for systemic steroid. Cardiovascular: Relatively stable GI: Nutrition per dietary and GI prophylaxis per routine. Will keep patient nothing by mouth at this time Heme: DVT prophylaxis per routine ID: Continue antibiotics and plan to de-escalation. Empiric coverage for aspiration pneumonia. Lactic acid is most likely related to seizure. Renal; urine out put and renal function reviewed Endorcine: blood glucose is monitored Lines: all lines checked and no evidence of infections Skin: skin care to prevent pressure ulcers per nursing routine care Dispo: ICU Code: Full. Prognosis. Guarded I spent 45 min of Critical Care time with this patient. It involved decision making of high complexity to assess, manipulate, and support vital organ system failure and/or to prevent further life threatening deterioration of the patient's condition. The time involved in the performance of separately reportable procedures was not counted toward critical care time.
[2018-11-15] MEDS ORDERED: Naloxone 0.4 MG/ML INJ IVP PRN (14:49)
[2018-11-15] MEDS ORDERED: Artificial Tears SOLN 15 ML BOTTLE BOTH EYES PRN (14:53)
[2018-11-15] MEDS ORDERED: Ipratropium/Albuterol Neb 3 ML IH PRN (15:46)
[2018-11-15] MEDS: Ipratropium/Albuterol Neb 3 ML IH SCH ×2 (15:57→19:55)
[2018-11-15] MEDS: Artificial Tears SOLN 15 ML BOTTLE BOTH EYES SCH ×2 (15:57→20:23)
[2018-11-15] MEDS: 0.9 % Sodium Chloride 1,000 ML IVC SCH (16:00)
--- NOTE | 2018-11-15 16:28 | EEG/EMG/Oth Biometrics Report ---
EEG Procedure Report EEG Procedure: Routine EEG Procedure Note: This is a routine 21 channel digital EEG performed utilizing 10- 20 international electrode placement system. FINDINGS: Patient has a predominant waking background frequency that is average voltage, 10-12 Hertz alpha activity in the posterior region, normal amplitude symmetrical over the both hemispheres reactive to eyes opening and closing record continued to show beta activity intermixed with some theta off and on, no abnormal activity recorded, predominantly no evidence of any spike wave discharges or any lateralizing abnormalities, Photic stimulation did not produce any convulsive response. Intermittent EMG artifacts were noted. Stage II sleep was not achieved. Impression: Significant amount of beta activity noted, nonspecific pattern predominantly due to medications side effects in particularly benzodiazepine and barbiturates No epileptiform discharges or any other paroxysmal activities noted.
[2018-11-15] MEDS: Topiramate 100 MG TABLET PO SCH ×2 (17:00→20:23)
[2018-11-15] MEDS: levETIRAcetam 250 MG TABLET PO SCH (17:00)
--- NOTE | 2018-11-15 17:35 | Event Note ---
Date of Encounter: 11/15/18 Time of Encounter: 17:29 I discussed the patient case with Dr. Maynard and Dr. Hwang. Patient H&P documented per Dr. Maynard and Dr. Hwang. From a hospitalist standpoint, we will follow along and manage medically and defer vent management to pulmonology. I also met with neurology and discussed the case with them. Reportedly, patient has had non-compliance with her seizure medications and has not taken them for the last week. This seizure is likely due to medical noncompliance. Additionally, she had some prolonged QTc intervals on her EKG with significant ectopy and bigeminy. She is also hypokalemic. There are no old EKGs and/or cardiac records. As such, we are correcting her potassium, monitoring electrolytes and telemetry, and consulting cardiology for concerns of prolonged QTc. Antiepileptics may prolong her QT intervals and we will need to review these medications with neurology and pharmacy. We will repeat EKGs after her electrolytes are corrected. Meanwhile, we will treat her by mechanical ventilation per pulmonary, treat presumptive aspiration with antibiotics deta iled, and resume antiepileptics per neurology. Assessment and plan as documented in the pulmonary H&P.
[2018-11-15 19:32] LABS: BUN/Creatinine Ratio 13 (6-26); Blood Urea Nitrogen 9 mg/dL (6-20); Calcium 7.9 mg/dL (8.6-10.3); Carbon Dioxide 20 mEq/L (23-29); Chloride 107 mEq/L (98-107); Glucose 113 mg/dL (70-105); Osmolality,Calculated 277 (280-300); Potassium 3.2 mEq/L (3.5-5.1); Sodium 134 mEq/L (136-145); eGFR For African Americans > 60 (> 60); eGFR For Non-African Americans > 60 (> 60)
[2018-11-15] MEDS ORDERED: Potassium Chloride Elixir 20 MEQ/15 ML UDC GTUBE ONE (20:12)
[2018-11-15] MEDS: OXcarbazepine 150 MG TABLET PO SCH (20:23)
[2018-11-15] MEDS: *HR* LORazepam 2 MG/ML VIAL IVP PRN (20:23)
[2018-11-15] MEDS: Chlorhexidine Rinse 15 ML MOUTHWASH MM SCH (20:23)
[2018-11-16] MEDS: 0.9 % Sodium Chloride 1,000 ML IVC SCH ×2 (00:01→06:59)
[2018-11-16] MEDS: Artificial Tears SOLN 15 ML BOTTLE BOTH EYES SCH ×7 (03:40→23:36)
[2018-11-16] MEDS: *HR* LORazepam 2 MG/ML VIAL IVP PRN (03:40)
[2018-11-16] MEDS: Ipratropium/Albuterol Neb 3 ML IH SCH ×7 (04:13→23:53)
[2018-11-16 04:35] LABS: Alanine Aminotransferase 16 Units/L (7-52); Albumin 3.5 g/dL (3.5-5.7); Albumin/Globulin Ratio 1.3 (1.1-2.2); Alkaline Phosphatase 70 Units/L (34-104); Aspartate Amino Transferase 31 Units/L (13-39); BUN/Creatinine Ratio 12 (6-26); Bilirubin,Total 0.5 mg/dL (0.3-1.0); Blood Urea Nitrogen 7 mg/dL (6-20); Calcium 7.9 mg/dL (8.6-10.3); Carbon Dioxide 19 mEq/L (23-29); Chloride 107 mEq/L (98-107); Globulin 2.7 g/dL (2.4-3.5); Glucose 134 mg/dL (70-105); Osmolality,Calculated 280 (280-300); Potassium 3.2 mEq/L (3.5-5.1); Sodium 135 mEq/L (136-145); Total Protein 6.2 g/dL (6.4-8.9); eGFR For African Americans > 60 (> 60); eGFR For Non-African Americans > 60 (> 60)
[2018-11-16 04:47] LABS: ABG Base Excess -5 mEq/L (-2 to 3); ABG HCO3 19 mEq/L (21-27); ABG Oxygen Saturation 99 % (95-98); ABG PCO2 31 mmHg (35-45); ABG PH 7.41 pH Units (7.32-7.45); ABG PO2 129 mmHg (85-104); ABG TCO2 20 mEq/L (20-26); Blood Gas Modality ASSIST CONTROL; Blood Gas VT 450 cc
[2018-11-16 04:48] LABS: Blood Gas PEEP 5 cm H2O
[2018-11-16 05:26] LABS: Basophils % 0.1 %; Hematocrit 33.3 % (35.3-44.9); Hemoglobin 11.5 g/dL (11.5-15.4); Immature Granulocytes % 0.5 % (0-4); Lymphocytes # 1.1 K/mcL (0.6-4.6); Lymphocytes % 11.7 %; Mean Corpuscular HGB Conc 34.5 g/dL (31.6-35.5); Mean Corpuscular Hemoglobin 30.7 pg (28.0-33.3); Mean Corpuscular Volume 88.8 fL (83.0-100.0); Mean Platelet Volume 8.6 fL (9.4-12.4); Monocytes # 0.5 K/mcL (0.0-1.3); Monocytes % 5.3 %; Neutrophils # 7.5 K/mcL (1.6-8.9); Platelet Count 211 K/mcL (140-400); Red Blood Count 3.75 M/mcL (3.82-4.97); Red Cell Distribution Width 14.3 % (11.5-14.5); Segmented Neutrophils % 82.4 %; White Blood Count 9.1 K/mcL (4.3-11.1)
[2018-11-16] MEDS: levETIRAcetam 250 MG TABLET PO SCH ×2 (05:28→17:11)
[2018-11-16] MEDS: OXcarbazepine 150 MG TABLET PO SCH ×2 (07:00→20:36)
[2018-11-16] MEDS: Topiramate 100 MG TABLET PO SCH ×3 (07:00→20:36)
[2018-11-16] MEDS: Chlorhexidine Rinse 15 ML MOUTHWASH MM SCH ×2 (07:00→20:37)
--- NOTE | 2018-11-16 09:24 | Internal Med Progress Note ---
Hospitalist Progress Note - Encounter Date of Encounter: 11/16/18 Time of Encounter: 07:35 - Subjective Interval History: Patient seen, examined, and discussed in collaboration with Dr. Hwang and the ICU team this morning. She was placed on CPAP on the ventilator, which she tolerated well. She was then later extubated and she seems to be doing well at this moment. I also met and discussed with the neurologist team as well. She had received her morning dose of antiepileptics prior to extubation. Neurology has ordered a repeat EEG to be done today and will provide further recommendations. If she remains stable later today, she may transfer out of the ICU later today. Clinically, her lung exam reveals improved breath sounds with minimal rhonchi and no crackles. I have a low suspicion of pneumonia, and, therefore, we are de-escalating antibiotics today. Her antibiotics can likely stop be stopped tomorrow if she remains afebrile and cultures remain negative. I met with her son and daughter this morning and explained the plan for the day. - Exam Vitals: Temp Pulse Resp BP Pulse Ox 97.8 F 70 20 119/71 99 11/16/18 09:10 11/16/18 09:00 11/16/18 09:00 11/16/18 09:00 11/16/18 09:00 Exam: General: NAD HEENT: dry mucosa; sclera without icterus; neck supple Chest: good air movement relatively clear with rare rhonchi; faint wheeze, and no crackles; RRR; no appreciable MTR. Abdomen: soft, NT, ND, no HSMG, + BS Ext: full ROM; no CCE; pulses equal Neuro: somnolent but arousable easily, responds appropriately, moves all four extremities -- shortly afer stopping Propofol Skin: warm and dry - Assessment and Plan (1) Seizures Current Visit: Yes Status: Acute Assessment and Plan: 1. Continue home meds per Neurology. 2. Repeat EEG today; further recommendations after EEG. 3. Seizure precautions. (2) Aspiration into airway Current Visit: Yes Status: Resolved Assessment and Plan: 1. Breathing easily and extubated this morning. 2. Stop Flagyl and continue Zosyn. 3. Follow blood and sputum cultures; if negative tomorrow, plan to stop antibiotics. 4. Oxygen and aerosols PRN. (3) Hypokalemia Current Visit: Yes Status: Resolved Assessment and Plan: 1. Corrected. 2. Monitor and replacement as necessary. 3. Repeat EKG today to assess QTc. (4) Medical non-compliance Current Visit: Yes Status: Chronic Assessment and Plan: 1. Per family, patient has history of non-compliance with eds due to lack of insurance coverage of some meds and the financial impact. 2. Compliance encouraged. 3. Consult social work. DVT Prophylaxis: Heparin SQ - Time Spent with Patient Total time spent is greater than 50% in coordination of care (as documented) at patient's floor/unit and/or counseling patient: 25 - 35 minutes Plan of Care Discussed with: natural remedy consultant Internal Medicine: Result - Labs CBC & Chem 7: 11/16/18 04:45 11/16/18 03:53 Labs: Short CBC 11/15/18 11/16/18 Range/Units 10:48 04:45 WBC 11.6 H 9.1 (4.3-11.1) K/mcL Hgb 13.5 11.5 D (11.5-15.4) g/dL Hct 41.3 33.3 L (35.3-44.9) % Plt Count 304 211 (140-400) K/mcL Neutrophils # 6.6 7.5 (1.6-8.9) K/mcL BMP 11/15/18 11/15/18 11/16/18 10:48 18:57 00:47 Sodium 135 L 134 L Potassium 2.9 L 3.2 L 3.7 Chloride 100 107 Carbon Dioxide 12 L 20 L BUN 11 9 Creatinine 1.04 0.69 Glucose 179 H 113 H Calcium 9.2 7.9 L 11/16/18 03:53 Sodium 135 L Potassium 3.2 L Chloride 107 Carbon Dioxide 19 L BUN 7 Creatinine 0.58 L Glucose 134 H Calcium 7.9 L Cardiac Enzymes 11/15/18 Range/Units 10:48 Troponin I 0.03 (< 0.04) ng/mL Liver Function 11/15/18 11/16/18 Range/Units 10:48 03:53 Total Bilirubin 0.4 0.5 (0.3-1.0) mg/dL AST 23 31 (13-39) Units/L ALT 11 16 (7-52) Units/L Alkaline Phosphatase 76 70 (34-104) Units/L Albumin 4.3 3.5 (3.5-5.7) g/dL Urine 11/15/18 Range/Units 11:20 Urine Color Dark Yellow (Yellow) Urine Clarity Turbid A (Clear) Urine pH 6.0 (5.0-8.0) pH Units Ur Specific [place]ulon 1.024 (1.010-1.025) Urine Protein >=300 H (Neg-Trace) mg/dL Urine Glucose (UA) Normal (Normal) mg/dL - ABG Interpretation ABG results: ABG ABG pH 7.41 pH Units (7.32-7.45) 11/16/18 04:44 ABG pCO2 31 mmHg (35-45) L 11/16/18 04:44 ABG pO2 129 mmHg (85-104) H 11/16/18 04:44 ABG O2 Saturation 99 % (95-98) H 11/16/18 04:44 - Impressions Impressions Chest X-Ray 11/15/18 11:20 IMPRESSION: Patchy bronchial thickening and prominent interstitial changes seen which may be related to multifocal pneumonia within the left suprahilar and right perihilar region. D/ / Chava Durand MD / Chava Durand MD Interpreting Provider: Chava Durand MD Head CT 11/15/18 11:27 IMPRESSION: No acute intracranial abnormality. D/ / Neal Ivey MD / Neal Ivey MD Interpreting Provider: Neal Ivey MD Cervical Spine CT 11/15/18 11:29 IMPRESSION: No acute abnormality of the cervical spine. D/ / Anton Brock MD / Anton Brock MD Interpreting Provider: Anton Brock MD X-Ray 11/15/18 14:31 IMPRESSION: Enteric tube in the stomach as above. No evidence of bowel obstruction. D/ / Neal Ivey MD / Neal Ivey MD Interpreting Provider: Neal Ivey MD Consult Discharge Plan - Plan Referrals: Corbin Valiente [Primary Care Provider] - (2) Aspiration into airway Qualifiers: Encounter type: initial encounter Qualified Code(s): T17.908A - Unspecified foreign body in respiratory tract, part unspecified causing other injury, initial encounter
[2018-11-16] MEDS: Piperacillin/Tazobactam 3.375 GM in 0.9 % Sodium Chloride Mini Bag 100 ML IVPB SCH ×2 (09:29→17:12)
--- NOTE | 2018-11-16 09:41 | Neurology Progress Note ---
<Billy Marion J - Last Filed: 11/16/18 09:35> Date of Encounter: 11/16/18 Time of Encounter: 09:35 Assessment and Plan (1) Unresponsive Current Visit: Yes Status: Acute (2) Seizures Current Visit: Yes Status: Acute Clinically, the patient has improved compared to yesterday's assessment. She is now off sedation and extubated. She is drowsy but alert to gentle verbal s timulus able to somewhat follow commands. Family at the bedside this morning. Plan of care discussed including repeat EEG. It appears that the patient has been noncompliant with her antiepileptic drugs this is most likely what led to seizures; Trileptal level less than 1, Keppra level less than 3, both are subtherapeutic. She is noncompliant as a result of financial constraints. Both myself and Dr. Velazquez discussed good Rx and explained to the family that she is able to get her antiepileptic drugs for less than $30 per month using the service. In regards to plan of care today we are recommending repeating EEG, continuous PRN Ativan for breakthrough seizures and continue seizure precautions. Continue with Topamax, Keppra and Trileptal, otherwise continuous medical supportive care. Subjective Principal diagnosis: Seizures Interval history: The patient was seen in follow-up for seizures. The chart was reviewed, the patient was seen and examined at the bedside today. She is extubated and off sedation at this juncture. She is drowsy but alert and responsive to verbal stimulus. She follows commands and there are no obvious neurological deficits. No Seizure activity since admission. Family is at bedside. Appears patient is not compliant with his seizure medications due to financial constraints. I discussed getting medical social consultant consultation in regards to assisting patient with medications. Objective - Constitutional Vitals: Temp Pulse Resp BP Pulse Ox 97.8 F 70 20 119/71 99 11/16/18 09:10 11/16/18 09:00 11/16/18 09:00 11/16/18 09:00 11/16/18 09:00 Exam: Examination: General Examination: *CONSTITUTIONAL: Drowsy but arouses to verbal stimulus no acute distress *GENERAL APPEARANCE OF PATIENT appears healthy and well groomed *EYES: pupils equal, round, reactive to light and accommodation, conjunctiva clear without masses or ulcerations, fundi normal. *CARDIOVASCULAR: no peripheral edema, distal temperature normal, dorsalis pedis pulses normal. Refer to vital signs * MUSCULOSKELETAL: *GAIT AND STATION: normal, with normal Romberg testing, no abnormalities such as broad base gait or spasticity *ASSESSMENT OF MUSCLE STRENGTH IN THE UPPER AND LOWER EXTREMITIES moves all extremities spontaneously *MUSCLE TONE IN THE UPPER AND LOWER EXTREMITIES normal. No abnormal movements, fasciculations or atrophy identified. Neurological: *ORIENTATION to person *LANGUAGE AND FUNCTION muffled voice s/p extubation but no speech or language dysfunction noted *ATTENTION AND CONCENTRATION are abnormal as she does have some difficulty maintaining attention and concentration *LANGUAGE FUNCTION no significant aphasia *FUND OF KNOWLEDGE unaware of current events *MENTAL attention span and concentration abnormal. *CN II optic fundi were normal, no papilledema noted. *CN III,IV, PERRLA extraocular eye movements were full, no nystagmus and no ptosis noted. *CN V shows normal sensation and jaw opens symmetrically. *CN VII shows normal facial movement symmetrically, upper and lower bilaterally. *CN VIII shows no significant hearing loss on exam *CN IX-X palate elevated symmetrically *CN XI normal strength in the sternocleidomastoid muscles, symmetrical shoulder shrugging. *CN XII tongue protruded in the midline, with normal strength and movement. *SENSORY EXAMINATION light touch intact *REFLEXES: deep tendon reflexes were normal and symmetrical , grade 1/4 diffusely, no pathological reflexes were noted. *CEREBELLAR TESTING patient did not perform *PAIN LEVEL 0/10 Results - Laboratory Findings CBC and BMP: 11/16/18 04:45 11/16/18 03:53 Abnormal lab findings: Abnormal lab results WBC 11.6 K/mcL (4.3-11.1) H 11/15/18 10:48 RBC 3.75 M/mcL (3.82-4.97) L 11/16/18 04:45 Hct 33.3 % (35.3-44.9) L 11/16/18 04:45 MPV 8.6 fL (9.4-12.4) L 11/16/18 04:45 ABG pCO2 31 mmHg (35-45) L 11/16/18 04:44 ABG pO2 129 mmHg (85-104) H 11/16/18 04:44 ABG HCO3 19 mEq/L (21-27) L 11/16/18 04:44 ABG O2 Saturation 99 % (95-98) H 11/16/18 04:44 ABG Base Excess -5 mEq/L (-2 to 3) L 11/16/18 04:44 Sodium 135 mEq/L (136-145) L 11/16/18 03:53 Potassium 3.2 mEq/L (3.5-5.1) L 11/16/18 03:53 Carbon Dioxide 19 mEq/L (23-29) L 11/16/18 03:53 Creatinine 0.58 mg/dL (0.60-1.20) L 11/16/18 03:53 Est GFR (Non-Af Amer) 55 (> 60) L 11/15/18 10:48 Glucose 134 mg/dL (70-105) H 11/16/18 03:53 POC Glucose 123 mg/dL (70-99) H 11/15/18 23:25 Calculated Osmolality 277 (280-300) L 11/15/18 18:57 Lactic Acid 2.9 mmol/L (0.5-2.2) H 11/15/18 15:51 Calcium 7.9 mg/dL (8.6-10.3) L 11/16/18 03:53 Serum Total Protein 6.2 g/dL (6.4-8.9) L 11/16/18 03:53 Urine Clarity Turbid (Clear) A 11/15/18 11:20 Urine Protein >=300 mg/dL (Neg-Trace) H 11/15/18 11:20 Urine Blood Large (Negative) H 11/15/18 11:20 Urine Bilirubin Small (Negative) H 11/15/18 11:20 Urine Microscopic WBC 5-15 per hpf (0-3) H 11/15/18 11:20 Ur Squamous Epith Cells Many per lpf (None-Few) H 11/15/18 11:20 Hyaline Casts Moderate per lpf (None-Few) H 11/15/18 11:20 Ur Culture Indicated? YES (NO) A 11/15/18 11:20 Salicylates < 2.5 mg/dL (15.0-30.0) L 11/15/18 11:45 Acetaminophen < 10 mcg/mL (10-20) L 11/15/18 11:45 Carbamazepine < 1 mcg/mL (4-12) L 11/15/18 15:51 Levetiracetam < 3 mcg/mL (6-46) L 11/15/18 15:51 U Marijuana (THC) Screen Positive ng/mL (Cutoff = 50) H 11/15/18 11:20 Consult Discharge Plan - Plan Referrals: Corbin Valiente [Primary Care Provider] - <Hayde Velazquez I - Last Filed: 11/16/18 14:34> Date of Encounter: 11/16/18 Assessment and Plan (1) Unresponsive Current Visit: Yes Status: Acute (2) Seizures Current Visit: Yes Status: Acute I have personally performed a face to face diagnostic evaluation, including HPI, EXAM, which is included in the Assesment and plan, which was discussed with Billy Marion CNP, I agree with the above outlined documentation. Hayde Velazquez MD. Neurology Objective - Constitutional Vitals: Temp Pulse Resp BP Pulse Ox 97.2 F L 66 20 113/70 100 11/16/18 12:37 11/16/18 14:00 11/16/18 14:00 11/16/18 14:00 11/16/18 14:00 Results - Laboratory Findings CBC and BMP: 11/16/18 04:45 11/16/18 03:53 Abnormal lab findings: Abnormal lab results WBC 11.6 K/mcL (4.3-11.1) H 11/15/18 10:48 RBC 3.75 M/mcL (3.82-4.97) L 11/16/18 04:45 Hct 33.3 % (35.3-44.9) L 11/16/18 04:45 MPV 8.6 fL (9.4-12.4) L 11/16/18 04:45 ABG pCO2 31 mmHg (35-45) L 11/16/18 04:44 ABG pO2 129 mmHg (85-104) H 11/16/18 04:44 ABG HCO3 19 mEq/L (21-27) L 11/16/18 04:44 ABG O2 Saturation 99 % (95-98) H 11/16/18 04:44 ABG Base Excess -5 mEq/L (-2 to 3) L 11/16/18 04:44 Sodium 135 mEq/L (136-145) L 11/16/18 03:53 Potassium 3.2 mEq/L (3.5-5.1) L 11/16/18 03:53 Carbon Dioxide 19 mEq/L (23-29) L 11/16/18 03:53 Creatinine 0.58 mg/dL (0.60-1.20) L 11/16/18 03:53 Est GFR (Non-Af Amer) 55 (> 60) L 11/15/18 10:48 Glucose 134 mg/dL (70-105) H 11/16/18 03:53 POC Glucose 112 mg/dL (70-99) H 11/16/18 11:58 Calculated Osmolality 277 (280-300) L 11/15/18 18:57 Lactic Acid 2.9 mmol/L (0.5-2.2) H 11/15/18 15:51 Calcium 7.9 mg/dL (8.6-10.3) L 11/16/18 03:53 Serum Total Protein 6.2 g/dL (6.4-8.9) L 11/16/18 03:53 Urine Clarity Turbid (Clear) A 11/15/18 11:20 Urine Protein >=300 mg/dL (Neg-Trace) H 11/15/18 11:20 Urine Blood Large (Negative) H 11/15/18 11:20 Urine Bilirubin Small (Negative) H 11/15/18 11:20 Urine Microscopic WBC 5-15 per hpf (0-3) H 11/15/18 11:20 Ur Squamous Epith Cells Many per lpf (None-Few) H 11/15/18 11:20 Hyaline Casts Moderate per lpf (None-Few) H 11/15/18 11:20 Ur Culture Indicated? YES (NO) A 11/15/18 11:20 Salicylates < 2.5 mg/dL (15.0-30.0) L 11/15/18 11:45 Acetaminophen < 10 mcg/mL (10-20) L 11/15/18 11:45 Carbamazepine < 1 mcg/mL (4-12) L 11/15/18 15:51 Levetiracetam < 3 mcg/mL (6-46) L 11/15/18 15:51 U Marijuana (THC) Screen Positive ng/mL (Cutoff = 50) H 11/15/18 11:20
--- NOTE | 2018-11-16 11:46 | Event Note ---
Date of Encounter: 11/16/18 Time of Encounter: 11:44 - Cardiology Event Note Call for evaluation of long QTc of 560 yesterday in the setting of hypokalemia with a potassium of 2.7. This has corrected as her potassium has been corrected with a QTC of 490 ms. I would recommend serial EKGs every 12 hours while inpatient and if QTC is above 500 ms please contact cardiology once again. Please not hesitate contact us for any questions. No other recommendations at this time.
[2018-11-16] MEDS ORDERED: Ketorolac 15 MG/ML VIAL IVP ONE (11:51)
[2018-11-16] MEDS: *HR* Heparin 5,000 UNIT/ML VIAL SQ SCH ×2 (12:43→20:37)
--- NOTE | 2018-11-16 13:13 | Internal Med Progress Note ---
<Adolfo Mayanrd - Last Filed: 11/16/18 15:26> Hospitalist Progress Note - Encounter Date of Encounter: 11/16/18 Time of Encounter: 13:11 - Subjective Interval History: Ms. Flores is a 58 year old female with a known history of seizure disorder with internal vagal stimulator device on Trileptal, Topamax, Keppra prescribed by Dr. Morgna with frequent follow-up visits. The patient also has hypertension and anxiety/depression and is on bisoprolol/hydrochlorothiazide, Paxil, and lovastatin. Patient has no known drug allergies. The patient her were driving to the hospital today for an outpatient follow-up with Dr. Morgan for medication refill when the patient began having a seizure event. The states that the event lasted approximately 15 minutes which is longer than the patient's typical seizures he states that she began foaming at the mouth which is unusual for her and these episodes. They presented to the ED with the patient was refractory to 4 mg of Ativan and the decision was made for emergency intubation. 2 attempts by attending physician and respiratory therapist failed to achieve the intubation and a third attempt by second attending was successful. Rocuronium and etomidate were used as sedating paralytic agents. Patient appeared to be intolerant to propofol only as she was not well sedated and a Versed drip was added at that time which has kept the patient sedated to a Corea scale approximately 3. Laboratory analysis the ED revealed a lactic acid of 6.2 which may be due to seizure activity, however given the fact that the patient has an x-ray finding which is concerning for multifocal pneumonia of bilateral lungs this could also be infectious in nature. The patient was started on Flagyl and Zosyn in the ED for management of multifocal pneumonia. Patient was also found to be hypokalemic which the states is been a recurring event for the patient at a value of 2.9. 40 mEq were given down the patient's NG tube for replacement. She was also positive for marijuana on toxicology screen. Neurology is aware of the patient's arrival here in the ED and neurology nurse practitioner Billy Marion examined the patient in the ED and placed orders for drug levels of her various anti-epileptic medications. EEG has been ordered. The states that for the past 2-3 days the patient's been complaining of "not feeling well". The patient noted that last night the patient urinated on herself and stated that she believes that she may have had another seizure. She is also complained of worsening cramping over the past 2 days but he denies any known complaints of chest pain, shortness of breath, nausea vomiting fevers or any other concerns or complaints. The states that the patient has been on Keppra for approximately one year and that it appeared to have greatly reduced the number and duration of her seizures. However the patient's does state that as they pay for these medications out of pocket that his will frequently misses doses for medication in an attempt to make them last longer. Patient remained on propofol drip with when necessary Ativan for agitation used yesterday and throughout the night. Patient was extubated on the morning of 11/16 without difficulty. Patient remains lethargic but is arousable to verbal stimuli. She is currently in no acute distress, vitals are normal on the monitor, cardiopulmonary exam is benign, no peripheral edema noted, skin is warm pink and dry. Family currently at bedside. - Exam Vitals: Temp Pulse Resp BP Pulse Ox 97.2 F L 75 22 119/52 100 11/16/18 12:37 11/16/18 13:00 11/16/18 13:00 11/16/18 13:00 11/16/18 13:00 Exam: General appearance: Lethargic but arousable Eyes: nonicteric ENT: oropharynx moist Neck: supple Effort: Normal Auscultation: Clear Cardiovascular: regular rate and rhythm Gastrointestinal: normoactive bowel sounds, soft, non-tender, non-distended Integumentary: normal Extremities: no cyanosis, no edema, no clubbing, pink and warm, pulses normal, no ischemia or petechiae Musculoskeletal: no deformities - Summary of Assessment and Plan Summary of Assessment and Plan: Assessment and plan: 1. Seizures: Neurology is consulted and is following EEG normal Restart patient's home antiepileptic medications 2. Multifocal pneumonia: Flagyl discontinued, continue Zosyn for antibiotic coverage Daily chest x-ray to monitor 3. Lactic acidosis: Lactic acid normalized at 1.4 4. Hypokalemia: Potassium normal 3.7 5. DVT prophylaxis Heparin 5000 units 3 times a day - Time Spent with Patient Total time spent is greater than 50% in coordination of care (as documented) at patient's floor/unit and/or counseling patient: less than 15 minutes Plan of Care Discussed with: family Internal Medicine: Result - Labs CBC & Chem 7: 11/16/18 04:45 11/16/18 03:53 Labs: Short CBC 11/16/18 Range/Units 04:45 WBC 9.1 (4.3-11.1) K/mcL Hgb 11.5 D (11.5-15.4) g/dL Hct 33.3 L (35.3-44.9) % Plt Count 211 (140-400) K/mcL Neutrophils # 7.5 (1.6-8.9) K/mcL BMP 11/15/18 11/15/18 11/16/18 10:48 18:57 00:47 Sodium 135 L 134 L Potassium 2.9 L 3.2 L 3.7 Chloride 100 107 Carbon Dioxide 12 L 20 L BUN 11 9 Creatinine 1.04 0.69 Glucose 179 H 113 H Calcium 9.2 7.9 L 11/16/18 03:53 Sodium 135 L Potassium 3.2 L Chloride 107 Carbon Dioxide 19 L BUN 7 Creatinine 0.58 L Glucose 134 H Calcium 7.9 L Cardiac Enzymes 11/15/18 Range/Units 10:48 Troponin I 0.03 (< 0.04) ng/mL Liver Function 11/15/18 11/16/18 Range/Units 10:48 03:53 Total Bilirubin 0.4 0.5 (0.3-1.0) mg/dL AST 23 31 (13-39) Units/L ALT 11 16 (7-52) Units/L Alkaline Phosphatase 76 70 (34-104) Units/L Albumin 4.3 3.5 (3.5-5.7) g/dL - ABG Interpretation ABG results: ABG ABG pH 7.41 pH Units (7.32-7.45) 11/16/18 04:44 ABG pCO2 31 mmHg (35-45) L 11/16/18 04:44 ABG pO2 129 mmHg (85-104) H 11/16/18 04:44 ABG O2 Saturation 99 % (95-98) H 11/16/18 04:44 - Impressions Impressions KUB X-Ray 11/15/18 14:31 IMPRESSION: Enteric tube in the stomach as above. No evidence of bowel obstruction. D/ / Neal Ivey MD / Neal Ivey MD Interpreting Provider: Neal Ivey MD Consult Discharge Plan - Plan Referrals: Corbin Valiente [Primary Care Provider] - <Masoud Walls - Last Filed: 11/16/18 18:02> Hospitalist Progress Note - Encounter Date of Encounter: 11/16/18 - Exam Vitals: Temp Pulse Resp BP Pulse Ox 97.2 F L 85 20 108/61 100 11/16/18 12:37 11/16/18 17:00 11/16/18 17:00 11/16/18 17:00 11/16/18 17:00 - Assessment and Plan (1) Seizures Current Visit: Yes Status: Resolved (2) Acute respiratory failure, unspecified whether with hypoxia or hypercapnia Current Visit: Yes Status: Resolved - Time Spent with Patient Total time spent is greater than 50% in coordination of care (as documented) at patient's floor/unit and/or counseling patient: Internal Medicine: Result - Labs CBC & Chem 7: 11/16/18 04:45 11/16/18 03:53 Labs: Short CBC 11/16/18 Range/Units 04:45 WBC 9.1 (4.3-11.1) K/mcL Hgb 11.5 D (11.5-15.4) g/dL Hct 33.3 L (35.3-44.9) % Plt Count 211 (140-400) K/mcL Neutrophils # 7.5 (1.6-8.9) K/mcL BMP 11/15/18 11/16/18 11/16/18 18:57 00:47 03:53 Sodium 134 L 135 L Potassium 3.2 L 3.7 3.2 L Chloride 107 107 Carbon Dioxide 20 L 19 L BUN 9 7 Creatinine 0.69 0.58 L Glucose 113 H 134 H Calcium 7.9 L 7.9 L Liver Function 11/16/18 Range/Units 03:53 Total Bilirubin 0.5 (0.3-1.0) mg/dL AST 31 (13-39) Units/L ALT 16 (7-52) Units/L Alkaline Phosphatase 70 (34-104) Units/L Albumin 3.5 (3.5-5.7) g/dL - ABG Interpretation ABG results: ABG ABG pH 7.41 pH Units (7.32-7.45) 11/16/18 04:44 ABG pCO2 31 mmHg (35-45) L 11/16/18 04:44 ABG pO2 129 mmHg (85-104) H 11/16/18 04:44 ABG O2 Saturation 99 % (95-98) H 11/16/18 04:44 - Attending Attestation Please see my separately dictated progress note. I saw and assessed patient with ICU team and Dr. Hwang. Patient extubated this morning and doing well. She remains a little somnolent but is easily arousable. Will keep patient in ICU overnight for monitoring and likely transfer tomorrow out of ICU if she remains stable. <Masoud Walls - Last Filed: 11/16/18 18:02> (2) Acute respiratory failure, unspecified whether with hypoxia or hypercapnia Qualifiers: Respiratory failure complication: unspecified whether with hypoxia or hypercapnia Qualified Code(s): J96.00 - Acute respiratory failure, unspecified whether with hypoxia or hypercapnia
--- NOTE | 2018-11-16 14:34 | EEG/EMG/Oth Biometrics Report ---
EEG Procedure Report EEG Procedure: Routine EEG Procedure Note: This is a routine 21 channel digital EEG performed utilizing 10- 20 international electrode placement system. FINDINGS: Patient has a predominant waking background frequency that is average voltage 8 to 10 Hertz alpha activity in the posterior region, normal amplitude symmetrical over the both hemispheres reactive to eyes opening and closing record continued to show alpha activity intermixed with some theta off and on, no abnormal activity recorded, predominantly no evidence of any spike wave discharges or any lateralizing abnormalities, Photic stimulation did not produce any convulsive response. Intermittent EMG artifacts were noted. Stage II sleep was not achieved. Continues electrode artifact noted in the right upper leads throughout the whole study Impression: Normal awake drowsy electroencephalogram with the exception of some beta activ ity likely medication side effects less prominent as compared to the previous his study, No epileptiform discharges or any other paroxysmal activities noted. ( Please note that normal EEG does not exclude the diagnosis of seizures or epilepsy, clinical correlation is suggested)
--- NOTE | 2018-11-16 16:11 | Pulmonology Progress Note ---
Date of Encounter: 11/16/18 Time of Encounter: 07:15 Assessment and Plan (1) Acute respiratory failure, unspecified whether with hypoxia or hypercapnia Current Visit: Yes Status: Resolved Patient had spontaneous breathing trial this morning and subsequently she was successfully extubated and reintubation secondary to having seizures. I suspect patient has underlying COPD and workup can be done as outpatient. Patient will be on bronchodilators and encourage incentive spirometry. If she remains stable then she can be transferred to the floor. Patient understand should not avoid tobacco smoking. Qualifiers: Respiratory failure complication: unspecified whether with hypoxia or hypercapnia Qualified Code(s): J96.00 - Acute respiratory failure, unspecified whether with hypoxia or hypercapnia (2) Seizures Current Visit: Yes Status: Resolved There is no evidence of active seizures and continue antiepileptic medication. Neurology follow-up. Patient is to be compliance with her medication. Subjective Principal diagnosis: Seizures Interval history: Patient has been tolerating spontaneous breathing trial and she was successfully extubated. Objective PUL Vital signs: Last Vital Signs Temp 97.2 F L 11/16/18 12:37 Pulse 64 11/16/18 15:00 Resp 18 11/16/18 15:00 BP 113/75 11/16/18 15:00 Pulse Ox 100 11/16/18 15:00 General appearance: no acute distress Eyes: nonicteric Neck: supple Effort: normal Auscultation: bilateral: rhonchi Percussion: bilateral: not dull Cardiovascular: regular rate and rhythm Gastrointestinal: normoactive bowel sounds, non-distended Integumentary: normal normal mental status, non-focal exam mood appropriate Results - Laboratory Findings CBC and BMP: 11/17/18 04:09 11/17/18 12:40 ABG ABG pH 7.41 pH Units (7.32-7.45) 11/16/18 04:44 ABG pCO2 31 mmHg (35-45) L 11/16/18 04:44 ABG pO2 129 mmHg (85-104) H 11/16/18 04:44 ABG O2 Saturation 99 % (95-98) H 11/16/18 04:44 Abnormal lab findings: Abnormal lab results WBC 11.6 K/mcL (4.3-11.1) H 11/15/18 10:48 RBC 3.75 M/mcL (3.82-4.97) L 11/16/18 04:45 Hct 33.3 % (35.3-44.9) L 11/16/18 04:45 MPV 8.6 fL (9.4-12.4) L 11/16/18 04:45 ABG pCO2 31 mmHg (35-45) L 11/16/18 04:44 ABG pO2 129 mmHg (85-104) H 11/16/18 04:44 ABG HCO3 19 mEq/L (21-27) L 11/16/18 04:44 ABG O2 Saturation 99 % (95-98) H 11/16/18 04:44 ABG Base Excess -5 mEq/L (-2 to 3) L 11/16/18 04:44 Sodium 135 mEq/L (136-145) L 11/16/18 03:53 Potassium 3.2 mEq/L (3.5-5.1) L 11/16/18 03:53 Carbon Dioxide 19 mEq/L (23-29) L 11/16/18 03:53 Creatinine 0.58 mg/dL (0.60-1.20) L 11/16/18 03:53 Est GFR (Non-Af Amer) 55 (> 60) L 11/15/18 10:48 Glucose 134 mg/dL (70-105) H 11/16/18 03:53 POC Glucose 112 mg/dL (70-99) H 11/16/18 11:58 Calculated Osmolality 277 (280-300) L 11/15/18 18:57 Lactic Acid 2.9 mmol/L (0.5-2.2) H 11/15/18 15:51 Calcium 7.9 mg/dL (8.6-10.3) L 11/16/18 03:53 Serum Total Protein 6.2 g/dL (6.4-8.9) L 11/16/18 03:53 Urine Clarity Turbid (Clear) A 11/15/18 11:20 Urine Protein >=300 mg/dL (Neg-Trace) H 11/15/18 11:20 Urine Blood Large (Negative) H 11/15/18 11:20 Urine Bilirubin Small (Negative) H 11/15/18 11:20 Urine Microscopic WBC 5-15 per hpf (0-3) H 11/15/18 11:20 Ur Squamous Epith Cells Many per lpf (None-Few) H 11/15/18 11:20 Hyaline Casts Moderate per lpf (None-Few) H 11/15/18 11:20 Ur Culture Indicated? YES (NO) A 11/15/18 11:20 Salicylates < 2.5 mg/dL (15.0-30.0) L 11/15/18 11:45 Acetaminophen < 10 mcg/mL (10-20) L 11/15/18 11:45 Carbamazepine < 1 mcg/mL (4-12) L 11/15/18 15:51 Levetiracetam < 3 mcg/mL (6-46) L 11/15/18 15:51 U Marijuana (THC) Screen Positive ng/mL (Cutoff = 50) H 11/15/18 11:20 - Microbiology Findings Microbiology Findings: Microbiology, Last 48 Hours 11/15/18 11:20 Urine Culture - Preliminary Urine,[place] Culture is incubating. 11/15/18 11:25 Blood Culture - Preliminary Peripheral Venipuncture Culture is incubating and being continuously monitored for growth. Final report to follow. 11/15/18 11:33 Blood Culture - Preliminary Peripheral Venipuncture Culture is incubating and being continuously monitored for growth. Final report to follow. - Clinical Findings Intake & Output: Intake & Output 11/16/18 11/16/18 11/16/18 07:59 15:59 23:59 Intake Total 2241.0 / 2862.0 621 / 2862.0 Output Total 550 / 925 375 / 925 Balance 1691.0 / 1937.0 246 / 1937.0 Consult Discharge Plan - Plan Referrals: Corbin Valiente [Primary Care Provider] -
[2018-11-16] MEDS ORDERED: Piperacillin/Tazobactam 3.375 GM in 0.9 % Sodium Chloride Mini Bag 100 ML IVPB SCH (18:00)
[2018-11-16] MEDS ORDERED: MetroNIDAZOLE 500 MG/100 ML 500 MG/100 ML BAG IVPB SCH (19:00)
[2018-11-17] MEDS: Piperacillin/Tazobactam 3.375 GM in 0.9 % Sodium Chloride Mini Bag 100 ML IVPB SCH ×2 (02:48→09:18)
[2018-11-17] MEDS: Artificial Tears SOLN 15 ML BOTTLE BOTH EYES SCH ×2 (02:53→07:53)
[2018-11-17] MEDS: Ipratropium/Albuterol Neb 3 ML IH SCH ×5 (04:09→20:24)
[2018-11-17 04:24] LABS: Basophils % 0.3 %; Eosinophils % 0.1 %; Hematocrit 27.9 % (35.3-44.9); Immature Granulocytes % 0.4 % (0-4); Lymphocytes # 1.9 K/mcL (0.6-4.6); Lymphocytes % 25.8 %; Mean Corpuscular HGB Conc 34.8 g/dL (31.6-35.5); Mean Corpuscular Hemoglobin 30.9 pg (28.0-33.3); Mean Corpuscular Volume 88.9 fL (83.0-100.0); Mean Platelet Volume 8.6 fL (9.4-12.4); Monocytes # 0.4 K/mcL (0.0-1.3); Monocytes % 4.7 %; Neutrophils # 5.1 K/mcL (1.6-8.9); Platelet Count 156 K/mcL (140-400); Red Blood Count 3.14 M/mcL (3.82-4.97); Red Cell Distribution Width 14.1 % (11.5-14.5); Segmented Neutrophils % 68.7 %; White Blood Count 7.4 K/mcL (4.3-11.1)
[2018-11-17 04:31] LABS: Hemoglobin 9.7 g/dL (11.5-15.4)
[2018-11-17 04:42] LABS: BUN/Creatinine Ratio 10 (6-26); Blood Urea Nitrogen 6 mg/dL (6-20); Calcium 7.5 mg/dL (8.6-10.3); Carbon Dioxide 23 mEq/L (23-29); Chloride 108 mEq/L (98-107); Glucose 103 mg/dL (70-105); Osmolality,Calculated 282 (280-300); Potassium 2.9 mEq/L (3.5-5.1); Sodium 137 mEq/L (136-145); eGFR For African Americans > 60 (> 60); eGFR For Non-African Americans > 60 (> 60)
[2018-11-17] MEDS ORDERED: *HR* Metoprolol 5 MG/5 ML VIAL IVP ONE ×6 (04:45→05:08)
[2018-11-17] MEDS ORDERED: 0.9 % Sodium Chloride 1,000 ML IVC ONE (05:12)
[2018-11-17] MEDS ORDERED: Potassium Chloride 40 MEQ, Lidocaine 1% 2 ML in D5% in Water 500 ML IVPB ONE (05:13)
[2018-11-17] MEDS ORDERED: 0.9 % Sodium Chloride 1,000 ML ONE (05:14)
[2018-11-17] MEDS: levETIRAcetam 250 MG TABLET PO SCH ×2 (05:17→17:41)
--- NOTE | 2018-11-17 05:19 | Event Note ---
Date of Encounter: 11/17/18 Time of Encounter: 04:40 Notified by patient's nurse that patient has flipped into atrial fibrillation. EKG confirms atrial fibrillation with RVR. Blood pressure stable and other vital signs within normal limits. 3 doses of IV Lopressor was given with only brief improvement in patient's rate. Patient asymptomatic. After the third dose of Lopressor, decided to initiate Cardizem bolus with drip and IV fluid bolus. Patient's potassium also found to be low at 2.9. Will also replete potassium. Continue to monitor. Will order echocardiogram for the morning. Patient denies history of cardiac problems in the past. Patient has a [id number] VASc score of 1-2, will discuss with morning team regarding anticoagulation.
[2018-11-17] MEDS: *HR* Heparin 5,000 UNIT/ML VIAL SQ SCH ×3 (05:21→22:15)
[2018-11-17] MEDS: Chlorhexidine Rinse 15 ML MOUTHWASH MM SCH (07:53)
[2018-11-17] MEDS: OXcarbazepine 150 MG TABLET PO SCH (07:59)
[2018-11-17] MEDS: Topiramate 100 MG TABLET PO SCH ×3 (07:59→22:15)
--- NOTE | 2018-11-17 08:59 | Neurology Progress Note ---
<Billy Marion J - Last Filed: 11/17/18 08:56> Date of Encounter: 11/17/18 Time of Encounter: 08:57 Assessment and Plan (1) Unresponsive Current Visit: Yes Status: Acute (2) Seizures Current Visit: Yes Status: Resolved The patient is continuing to improve and is now alert and oriented 3. There is been no development of neurological deficits overnight and she has not had any return of seizure activity since admission. She has now had 2 EEGs since admission; the first EEG was negative for seizure activity, the second EKG was also negative for seizure activity showing a normal awake and drowsy EEG with the exception of beta activity which is likely medication side effects; beta activity was less prominent when compared to previous EKG, no epileptiform discharges found. A CT of the head was unremarkable. It appears that her seizures were the result of medication noncompliance. I discussed the need for medication compliance with patient and family and they verbalized understanding. Also, they were given access to resources to help with obtaining her antiepileptic drugs. At this juncture we are recommending discontinuation of Trileptal and continuing Keppra and Topamax only. She will need neurology follow-up and 1-2 weeks of discharge. Neurology will sign off at this time. Please call should any urgent needs arise. Thank you for consulting [facility]. Subjective Principal diagnosis: Seizures Interval history: Chart reviewed, the patient was seen and examined in follow-up for seizures. Today she is alert and oriented 3 and progressing back to her baseline state. There has been no return of seizure activity since admission. Clinically, she is stable from a neurological perspective without any further complications. We discussed plan of care including continuing Topamax and Keppra and the discontinuation of Trileptal. The patient and family verbalized understanding and denied any further questions. Objective - Constitutional Vitals: Temp Pulse Resp BP Pulse Ox 98.6 F 96 20 132/86 100 11/17/18 07:53 11/17/18 08:00 11/17/18 08:00 11/17/18 08:00 11/17/18 08:00 Exam: Examination: General Examination: *CONSTITUTIONAL: Alert and oriented x3, no acute distress *GENERAL APPEARANCE OF PATIENT 58-year-old F who appears healthy and well groomed *EYES: pupils equal, round, reactive to light and accommodation, conj unctiva clear *CARDIOVASCULAR: no peripheral edema, distal temperature normal, dorsalis pedis pulses normal. Refer to vital signs * MUSCULOSKELETAL: *GAIT AND STATION: Deferred *ASSESSMENT OF MUSCLE STRENGTH IN THE UPPER AND LOWER EXTREMITIES bilateral deltoid, bicep, tricep, shot coat tender strength, hip flexors ,anterior tibialis, dorsoflexion of the foot 5/5 *MUSCLE TONE IN THE UPPER AND LOWER EXTREMITIES normal. No abnormal movements, fasciculations or atrophy identified. Neurological: *ORIENTATION to person, situation, time and place *LANGUAGE AND FUNCTION no significant aphasia or dysarthia was noted. *ATTENTION AND CONCENTRATION are normal *LANGUAGE FUNCTION no significant aphasia or dysarthia was noted. *FUND OF KNOWLEDGE aware of current events, past history, vocabulary *MENTAL attention span and concentration normal. *CN II optic fundi were normal, no papilledema noted. *CN III,IV, PERRLA extraocular eye movements were full, no nystagmus and no ptosis noted. *CN V shows normal sensation and jaw opens symmetrically. *CN VII shows normal facial movement symmetrically, upper and lower bilaterally. *CN VIII shows no significant hearing loss on exam *CN IX-X palate elevated symmetrically *CN XI normal strength in the sternocleidomastoid muscles, symmetrical shoulder shrugging. *CN XII tongue protruded in the midline, with normal strength and movement. *SENSORY EXAMINATION light touch intact *REFLEXES: deep tendon reflexes were normal and symmetrical , grade 2/4 diffusely, no pathological reflexes were noted. *CEREBELLAR TESTING normal finger to nose, heel/knee/marin *PAIN LEVEL 0/10 Results - Laboratory Findings CBC and BMP: 11/17/18 04:09 11/17/18 04:09 Abnormal lab findings: Abnormal lab results WBC 11.6 K/mcL (4.3-11.1) H 11/15/18 10:48 RBC 3.14 M/mcL (3.82-4.97) L 11/17/18 04:09 Hgb 9.7 g/dL (11.5-15.4) L D 11/17/18 04:09 Hct 27.9 % (35.3-44.9) L 11/17/18 04:09 MPV 8.6 fL (9.4-12.4) L 11/17/18 04:09 ABG pCO2 31 mmHg (35-45) L 11/16/18 04:44 ABG pO2 129 mmHg (85-104) H 11/16/18 04:44 ABG HCO3 19 mEq/L (21-27) L 11/16/18 04:44 ABG O2 Saturation 99 % (95-98) H 11/16/18 04:44 ABG Base Excess -5 mEq/L (-2 to 3) L 11/16/18 04:44 Sodium 135 mEq/L (136-145) L 11/16/18 03:53 Potassium 2.9 mEq/L (3.5-5.1) L 11/17/18 04:09 Chloride 108 mEq/L (98-107) H 11/17/18 04:09 Carbon Dioxide 19 mEq/L (23-29) L 11/16/18 03:53 Creatinine 0.58 mg/dL (0.60-1.20) L 11/17/18 04:09 Est GFR (Non-Af Amer) 55 (> 60) L 11/15/18 10:48 Glucose 134 mg/dL (70-105) H 11/16/18 03:53 POC Glucose 112 mg/dL (70-99) H 11/16/18 11:58 Calculated Osmolality 277 (280-300) L 11/15/18 18:57 Lactic Acid 2.9 mmol/L (0.5-2.2) H 11/15/18 15:51 Calcium 7.5 mg/dL (8.6-10.3) L 11/17/18 04:09 Serum Total Protein 6.2 g/dL (6.4-8.9) L 11/16/18 03:53 Urine Clarity Turbid (Clear) A 11/15/18 11:20 Urine Protein >=300 mg/dL (Neg-Trace) H 11/15/18 11:20 Urine Blood Large (Negative) H 11/15/18 11:20 Urine Bilirubin Small (Negative) H 11/15/18 11:20 Urine Microscopic WBC 5-15 per hpf (0-3) H 11/15/18 11:20 Ur Squamous Epith Cells Many per lpf (None-Few) H 11/15/18 11:20 Hyaline Casts Moderate per lpf (None-Few) H 11/15/18 11:20 Ur Culture Indicated? YES (NO) A 11/15/18 11:20 Salicylates < 2.5 mg/dL (15.0-30.0) L 11/15/18 11:45 Acetaminophen < 10 mcg/mL (10-20) L 11/15/18 11:45 Carbamazepine < 1 mcg/mL (4-12) L 11/15/18 15:51 Levetiracetam < 3 mcg/mL (6-46) L 11/15/18 15:51 U Marijuana (THC) Screen Positive ng/mL (Cutoff = 50) H 11/15/18 11:20 Consult Discharge Plan - Plan Referrals: Corbin Valiente [Primary Care Provider] - <Hayde Velazquez I - Last Filed: 11/17/18 15:32> Date of Encounter: 11/17/18 Assessment and Plan (1) Unresponsive Current Visit: Yes Status: Acute (2) Seizures Current Visit: Yes Status: Resolved I have personally performed a face to face diagnostic evaluation, including HPI, EXAM, which is included in the Assesment and plan, which was discussed with Billy Marion CNP, I agree with the above outlined documentation. Patient is alert awake and oriented 3 now most significant focal motor deficit noted At this time I would recommend that we should continue her on Keppra according to the patient it has helped her seizures at the same time may continue on T opamax because of the history of chronic migraine headaches but recommend discontinuation of Trileptal as her level was very low therapeutic and it may increase the compliance issue taking only 2 anticonvulsive instead of 3, if needed she may start on another anticonvulsant as an outpatient Okay to transfer from neurology standpoint Hayde Velazquez MD. NeurologyI Objective - Constitutional Vitals: Temp Pulse Resp BP Pulse Ox 98.2 F 88 15 132/82 100 11/17/18 15:13 11/17/18 15:26 11/17/18 11:26 11/17/18 11:00 11/17/18 11:26 Results - Laboratory Findings CBC and BMP: 11/17/18 04:09 11/17/18 12:40 Abnormal lab findings: Abnormal lab results WBC 11.6 K/mcL (4.3-11.1) H 11/15/18 10:48 RBC 3.14 M/mcL (3.82-4.97) L 11/17/18 04:09 Hgb 9.7 g/dL (11.5-15.4) L D 11/17/18 04:09 Hct 27.9 % (35.3-44.9) L 11/17/18 04:09 MPV 8.6 fL (9.4-12.4) L 11/17/18 04:09 ABG pCO2 31 mmHg (35-45) L 11/16/18 04:44 ABG pO2 129 mmHg (85-104) H 11/16/18 04:44 ABG HCO3 19 mEq/L (21-27) L 11/16/18 04:44 ABG O2 Saturation 99 % (95-98) H 11/16/18 04:44 ABG Base Excess -5 mEq/L (-2 to 3) L 11/16/18 04:44 Sodium 135 mEq/L (136-145) L 11/16/18 03:53 Potassium 3.0 mEq/L (3.5-5.1) L 11/17/18 08:56 Chloride 110 mEq/L (98-107) H 11/17/18 12:40 Carbon Dioxide 21 mEq/L (23-29) L 11/17/18 12:40 BUN 3 mg/dL (6-20) L 11/17/18 12:40 Creatinine 0.58 mg/dL (0.60-1.20) L 11/17/18 12:40 Est GFR (Non-Af Amer) 55 (> 60) L 11/15/18 10:48 BUN/Creatinine Ratio 5 (6-26) L 11/17/18 12:40 Glucose 107 mg/dL (70-105) H 11/17/18 12:40 POC Glucose 112 mg/dL (70-99) H 11/16/18 11:58 Calculated Osmolality 279 (280-300) L 11/17/18 12:40 Lactic Acid 2.9 mmol/L (0.5-2.2) H 11/15/18 15:51 Calcium 7.6 mg/dL (8.6-10.3) L 11/17/18 12:40 Serum Total Protein 6.2 g/dL (6.4-8.9) L 11/16/18 03:53 Urine Clarity Turbid (Clear) A 11/15/18 11:20 Urine Protein >=300 mg/dL (Neg-Trace) H 11/15/18 11:20 Urine Blood Large (Negative) H 11/15/18 11:20 Urine Bilirubin Small (Negative) H 11/15/18 11:20 Urine Microscopic WBC 5-15 per hpf (0-3) H 11/15/18 11:20 Ur Squamous Epith Cells Many per lpf (None-Few) H 11/15/18 11:20 Hyaline Casts Moderate per lpf (None-Few) H 11/15/18 11:20 Ur Culture Indicated? YES (NO) A 11/15/18 11:20 Salicylates < 2.5 mg/dL (15.0-30.0) L 11/15/18 11:45 Acetaminophen < 10 mcg/mL (10-20) L 11/15/18 11:45 Carbamazepine < 1 mcg/mL (4-12) L 11/15/18 15:51 Levetiracetam < 3 mcg/mL (6-46) L 11/15/18 15:51 U Marijuana (THC) Screen Positive ng/mL (Cutoff = 50) H 11/15/18 11:20
[2018-11-17 09:26] LABS: BUN/Creatinine Ratio 7 (6-26); Blood Urea Nitrogen 4 mg/dL (6-20); Calcium 7.5 mg/dL (8.6-10.3); Carbon Dioxide 21 mEq/L (23-29); Chloride 108 mEq/L (98-107); Glucose 111 mg/dL (70-105); Magnesium 1.6 mg/dL (1.6-2.6); Osmolality,Calculated 282 (280-300); Sodium 137 mEq/L (136-145); eGFR For African Americans > 60 (> 60); eGFR For Non-African Americans > 60 (> 60)
[2018-11-17] MEDS ORDERED: Potassium Chloride Elixir 20 MEQ/15 ML UDC PO ONE (09:52)
[2018-11-17] MEDS ORDERED: Calcium Gluconate 2,000 MG in 0.9 % Sodium Chloride 100 ML IVPB ONE (11:27)
--- NOTE | 2018-11-17 11:28 | Electrocardiograph Report ---
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
--- NOTE | 2018-11-17 11:30 | Electrocardiograph Report ---
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
--- NOTE | 2018-11-17 11:48 | Internal Med Progress Note ---
<Adolfo Maynard - Last Filed: 11/17/18 11:59> Hospitalist Progress Note - Encounter Date of Encounter: 11/17/18 Time of Encounter: 11:45 - Subjective Interval History: Ms. Flores is a 58 year old female with a known history of seizure disorder with internal vagal stimulator device on Trileptal, Topamax, Keppra prescribed by Dr. Morgan with frequent follow-up visits. The patient also has hypertension and anxiety/depression and is on bisoprolol/hydrochlorothiazide, Paxil, and lovastatin. Patient has no known drug allergies. The patient her were driving to the hospital today for an outpatient follow-up with Dr. Morgan for medication refill when the patient began having a seizure event. The states that the event lasted approximately 15 minutes which is longer than the patient's typical seizures he states that she began foaming at the mouth which is unusual for her and these episodes. They presented to the ED with the patient was refractory to 4 mg of Ativan and the decision was made for emergency intubation. 2 attempts by attending physician and respiratory therapist failed to achieve the intubation and a third attempt by second attending was successful. Rocuronium and etomidate were used as sedating paralytic agents. Patient appeared to be intolerant to propofol only as she was not well sedated and a Versed drip was added at that time which has kept the patient sedated to a Corea scale approximately 3. Laboratory analysis the ED revealed a lactic acid of 6.2 which may be due to seizure activity, however given the fact that the patient has an x-ray finding which is concerning for multifocal pneumonia of bilateral lungs this could also be infectious in nature. The patient was started on Flagyl and Zosyn in the ED for management of multifocal pneumonia. Patient was also found to be hypokalemic which the states is been a recurring event for the patient at a value of 2.9. 40 mEq were given down the patient's NG tube for replacement. She was also positive for marijuana on toxicology screen. Neurology is aware of the patient's arrival here in the ED and neurology nurse practitioner Billy Marion examined the patient in the ED and placed orders for drug levels of her various anti-epileptic medications. EEG has been ordered. The states that for the past 2-3 days the patient's been complaining of "not feeling well". The patient noted that last night the patient urinated on herself and stated that she believes that she may have had another seizure. She is also complained of worsening cramping over the past 2 days but he denies any known complaints of chest pain, shortness of breath, nausea vomiting fevers or any other concerns or complaints. The states that the patient has been on Keppra for approximately one year and that it appeared to have greatly reduced the number and duration of her seizures. However the patient's does state that as they pay for these medications out of pocket that his will frequently misses doses for medication in an attempt to make them last longer. Patient was extubated in the ICU without complication she is now saturating well on room air she is awake alert oriented engaged conversation answering questions appropriately. She is in no acute distress there are no overt lateralizing signs appreciated. Her skin is pink warm and dry pupils are equal round reactive to light she tracks well with EOMI, trachea midline supple cardiopulmonary exams unremarkable, abdomen soft nontender nondistended, good peripheral pulses, no evidence of peripheral edema. The patient has no concerns or complaints at this time. We have spoken with neurology and we will stop the patient's Trileptal but we will continue Keppra and Topamax. Patient did have an episode of A. fib with RVR overnight which responded well to Cardizem with spontaneous resolution, she is noted be hypokalemic as well as hypocalcemic I will replace these electrolytes and recheck. Patient will likely need home calcium channel tracie versus beta tracie as well as consideration of anticoagulation. Cardiology re-consulted and is following. - Exam Vitals: Temp Pulse Resp BP Pulse Ox 98.6 F 85 15 132/82 100 11/17/18 07:53 11/17/18 11:00 11/17/18 11:26 11/17/18 11:00 11/17/18 11:26 Exam: General appearance: Awake, alert, oriented, engaged to conversation answering questions appropriately Eyes: nonicteric, PERRL, EOMI ENT: oropharynx moist Neck: supple Effort: Normal Auscultation: Clear Cardiovascular: regular rate and rhythm Gastrointestinal: normoactive bowel sounds, soft, non-tender, non-distended Integumentary: [place], warm, dry Extremities: no cyanosis, no edema, no clubbing, pink and warm, pulses normal, no ischemia or petechiae Musculoskeletal: no deformities DVT Prophylaxis: Heparin SQ - Summary of Assessment and Plan Summary of Assessment and Plan: Assessment and plan: 1. Seizures: Neurology is consulted and is following EEG normal Continue Topamax and Keppra-stop Trileptal Every 2 hour when necessary Ativan 2 mg 2. Multifocal pneumonia: Antibiotic discontinued Patient asymptomatic, cardio pulmonary auscultation unremarkable 3. Lactic acidosis: Resolved 4. Hypokalemia: We will replace potassium with 60 mEq by mouth in addition to the 40 mEq potassium chloride rider given by hospitalist last evening. Continue to monitor closely 5. Atrial fibrillation with rapid ventricular response. -Responded well to Cardizem -Continue beta tracie -Continue to monitor closely 6. Hypocalcemia -Replaced continue to monitor closely 7. DVT prophylaxis Heparin 5000 units 3 times a day - Time Spent with Patient Total time spent is greater than 50% in coordination of care (as documented) at patient's floor/unit and/or counseling patient: Internal Medicine: Result - Labs CBC & Chem 7: 11/17/18 04:09 11/17/18 08:56 Labs: Short CBC 11/17/18 Range/Units 04:09 WBC 7.4 (4.3-11.1) K/mcL Hgb 9.7 L D (11.5-15.4) g/dL Hct 27.9 L (35.3-44.9) % Plt Count 156 (140-400) K/mcL Neutrophils # 5.1 (1.6-8.9) K/mcL BMP 11/17/18 11/17/18 04:09 08:56 Sodium 137 137 Potassium 2.9 L 3.0 L Chloride 108 H 108 H Carbon Dioxide 23 21 L BUN 6 4 L Creatinine 0.58 L 0.61 Glucose 103 111 H Calcium 7.5 L 7.5 L - ABG Interpretation ABG results: ABG ABG pH 7.41 pH Units (7.32-7.45) 11/16/18 04:44 ABG pCO2 31 mmHg (35-45) L 11/16/18 04:44 ABG pO2 129 mmHg (85-104) H 11/16/18 04:44 ABG O2 Saturation 99 % (95-98) H 11/16/18 04:44 Consult Discharge Plan - Plan Referrals: Corbin Valiente [Primary Care Provider] - <Masoud Walls - Last Filed: 11/17/18 19:45> Hospitalist Progress Note - Encounter Date of Encounter: 11/17/18 Time of Encounter: 09:30 - Exam Vitals: Temp Pulse Resp BP Pulse Ox 97.9 F 84 16 154/102 100 11/17/18 16:49 11/17/18 16:49 11/17/18 16:49 11/17/18 16:49 11/17/18 16:49 Exam: General: Awake, alert, NAD HEENT: moist mucosa, sore throat from ETT; neck supple Chest: CTA B, NO WRR, RRR, No MTR. Abdomen: soft, NT, ND, NO HSMG. Ext: full ROM, no calf pain, cap refill < 2 seconds Neuro: no focal deficits Skin: warm and dry - Assessment and Plan (1) Seizures Current Visit: Yes Status: Resolved (2) Acute respiratory failure, unspecified whether with hypoxia or hypercapnia Current Visit: Yes Status: Resolved - Time Spent with Patient Total time spent is greater than 50% in coordination of care (as documented) at patient's floor/unit and/or counseling patient: Internal Medicine: Result - Labs CBC & Chem 7: 11/17/18 04:09 11/17/18 12:40 Labs: Short CBC 11/17/18 Range/Units 04:09 WBC 7.4 (4.3-11.1) K/mcL Hgb 9.7 L D (11.5-15.4) g/dL Hct 27.9 L (35.3-44.9) % Plt Count 156 (140-400) K/mcL Neutrophils # 5.1 (1.6-8.9) K/mcL BMP 11/17/18 11/17/18 11/17/18 04:09 08:56 12:40 Sodium 137 137 136 Potassium 2.9 L 3.0 L 3.8 D Chloride 108 H 108 H 110 H Carbon Dioxide 23 21 L 21 L BUN 6 4 L 3 L Creatinine 0.58 L 0.61 0.58 L Glucose 103 111 H 107 H Calcium 7.5 L 7.5 L 7.6 L - ABG Interpretation ABG results: ABG ABG pH 7.41 pH Units (7.32-7.45) 11/16/18 04:44 ABG pCO2 31 mmHg (35-45) L 11/16/18 04:44 ABG pO2 129 mmHg (85-104) H 11/16/18 04:44 ABG O2 Saturation 99 % (95-98) H 11/16/18 04:44 - Impressions Impressions Echocardiogram 11/17/18 05:22 Impressions: LVEF 60-65%. Normal LV chamber size, wall thickness and function. Normal left ventricular diastolic function. Normal right ventricular structure and function. Mild mitral regurgitation. Mild tricuspid regurgitation. No pulmonary hypertension. Left Ventricular Wall Motion: Rest Echo Findings All wall segments showed normal motion. Findings: Study Quality * Technically adequate exam. ECG Findings * Normal sinus rhythm. Left Ventricle * LVEF 60-65%. * Normal LV chamber size, wall thickness and function. * Normal left ventricular diastolic function. Right Ventricle * Normal right ventricular structure and function. Left Atrium * Normal left atrial size. Right Atrium * Normal right atrial size. Interatrial Septum * Interatrial septum not well evaluated. Aortic Valve * Trileaflet aortic valve with normal function. * No aortic stenosis. * No aortic regurgitation. Mitral Valve * Normal mitral valve structure. * Mild mitral regurgitation. * No mitral stenosis. Tricuspid Valve * Normal tricuspid valve structure. * Mild tricuspid regurgitation. * No pulmonary hypertension. Pulmonic Valve * Normal pulmonic valve structure and function. * No pulmonic regurgitation. Aorta * Normally sized aortic root. Pericardium * The pericardium appears normal. IVC * Normal IVC dimensions and inspiratory collapse. Pulmonary Artery * Normal visualized portions of the main pulmonary artery. - Attending Attestation I discussed the patient case with Dr. Maynard. I saw, interviewed, and examined patient independently as well. We discussed the situation on MDR rounds as well. Patient has done well and improved since yesterday. She is alert, awake, in no distress, and interacting appropriately. Exam is benign. S he remains in sinus rhythm now. She did have a short run of atrial fibrillation with rapid ventricular response last night which corrected. This is most likely due to hypokalemia. We corrected her electrolytes. I did ask cardiology to see her one more time and follow-up with her as an outpatient. She will be transferred to a telemetry floor out of the ICU today for ongoing care. She will likely be discharged home in the next day or two, but I will defer that to the accepting hospitalist and neurology team. Other than my comments above and documented exam findings, I agree with Dr. Maynard's assessment and plan. <Masoud Walls - Last Filed: 11/17/18 19:45> (2) Acute respiratory failure, unspecified whether with hypoxia or hypercapnia Qualifiers: Respiratory failure complication: unspecified whether with hypoxia or hypercapnia Qualified Code(s): J96.00 - Acute respiratory failure, unspecified whether with hypoxia or hypercapnia
--- NOTE | 2018-11-17 12:35 | Event Note ---
Date of Encounter: 11/17/18 Time of Encounter: 12:30 CHADS2-VASC Score - Score Age: Less than 65 Score: 0
--- NOTE | 2018-11-17 12:43 | Cardiology Consult Note ---
<Carlos Enrique Bowers A - Last Filed: 11/17/18 13:18> Date of Encounter: 11/17/18 Time of Encounter: 12:30 Assessment and Plan (1) Atrial fibrillation Current Visit: Yes Status: Acute 1. One episode of A-fib overnight; 3 doses of IV Lopressor given with only brief improvement in patient's rate. Patient was asymptomatic. Cardizem bolus with drip and IV fluid bolus; Currently cardizem gtt is off. Currently Sinus rhythm. 2. CHADs-VACs = 1. Will start ASA. On BB for rate control, continue. 3. Patient's potassium also found to be low at 2.9; Mag 1.6; BMP is ordered and electrolytes being replaced, monitored as needed. 4. Discussed and reviewed with Dr. Carrillo. Cardio will sign off and schedule f/u visit as outpatient. Qualifiers: Atrial fibrillation type: unspecified Qualified Code(s): I48.91 - Unspecified atrial fibrillation Discussion w patient/family: The assessment and plan as outlined above was discussed with the patient and/or family members who expressed understanding and agreement. All questions were answered. Thank you for involving us in the care of your patient. Please call with any questions. History of Present Illness Consult date: 11/17/18 Consult reason: a-fib Chief complaint: seizure History of present illness: Ms. Flores is a 58 year old female PMH of seizure disorder with internal vagal stimulator; Sees Dr. Morgan, Hx of HTN. Consulted for evaluation of long QTc of 560 t-2 in the setting of hypokalemia with a potassium of 2.7. This has corrected as her potassium has been corrected with a QTC of 490 ms and 461ms. In addition, one episode of A-fib RVR last night, on cardizem gtt, given BB and resolved at this time. Past Med Surg Social Fam HX - Past Medical History Source: old records reviewed Medical history: hypertension, seizures Additional medical history: EPILEPSY, HTN Psychiatric history: no psych history - Past Surgical History Additional surgical history: x3, VNS FOR EPILEPSY, CHOLECYSTECTOMY - Social History Smoking Status: Current every day smoker Smokeless Tobacco Status: No Alcohol use: none Drug use: marijuana - Family History Mother Hx Family Cardiac Disorders: Yes (HTN) Hx Family Endocrine Disorder: Yes (DM) Father Hx Family Cancer: Yes Medications and Allergies Bisoprolol/Hydrochlorothiazide [Bisoprolol-Hctz 10-6.25 mg Tab] 1 each PO DAILY 11/15/18 [History] LevETIRAcetam [Keppra] 1,000 mg PO BID 11/15/18 [History] Lovastatin [Mevacor] 20 mg PO HS 11/15/18 [History] OXcarbazepine [Trileptal] 600 mg PO BID 11/15/18 [History] Paroxetine HCl [Paxil] 40 mg PO DAILY 11/15/18 [History] Topiramate [Topamax] 100 mg PO TID 11/15/18 [History] Allergy/AdvReac Type Severity Reaction Status Date / Time No Known Allergies Allergy Verified 02/08/15 18:26 All Systems Review: The remainder of the systems were reviewed and are negative - Cardiovascular Cardiovascular: as per HPI Physical Examination Vital Signs, Last 4 Hours Temp Pulse Resp BP Pulse Ox 11/17/18 12:03 98.4 F 11/17/18 11:26 15 100 11/17/18 11:00 85 20 132/82 80 11/17/18 10:00 78 20 96 11/17/18 09:00 90 18 122/82 97 General: Conversant, No Apparent Distress HEENT: Atraumatic, Normocephaly, Mucus Membranes Moist Neck: No JVD, Normal carotid pulses Cardiac: Reg Rate and Rhythm, Normal S1 and S2, No Murmur Lungs: Normal Breath Sounds, No Wheeze, Rales, Rhonchi Neuro: Alert and responsive, No focal deficits noted Abdomen: Soft, Non-Tender Skin: No rashes noted on visualized skin Musculoskeletal: No Chest Wall Tenderness Extremities: No Clubbing, No Cyanosis, No Edema, Normal Pulses Results 11/17/18 04:09 11/17/18 12:40 Lab Results 11/17/18 11/17/18 11/17/18 04:09 04:09 08:56 WBC 7.4 Hgb 9.7 L D Hct 27.9 L Plt Count 156 Sodium 137 137 Potassium 2.9 L 3.0 L Chloride 108 H 108 H Carbon Dioxide 23 21 L BUN 6 4 L Creatinine 0.58 L 0.61 Glucose 103 111 H Calcium 7.5 L 7.5 L Magnesium 1.6 Laboratory Tests Laboratory Tests 11/15/18 10:48 Troponin I 0.03 Active Medications Albuterol/Ipratropium (Duoneb) 3 ml IH [id number] [facility] Stop: 05/17/19 16:01 Last Admin: 11/17/18 11:26 Dose: 3 ml Documented by: Artificial Tears (Akwa Tears) 1 drop BOTH EYES Q2HR PRN; Protocol PRN Reason: Dry Eyes Stop: 05/17/19 14:54 Heparin Sodium (Porcine) (Heparin) 5,000 unit SQ Q8HCO [facility]; Protocol Stop: 05/18/19 14:01 Last Admin: 11/17/18 05:21 Dose: 5,000 unit Documented by: Levetiracetam (Keppra) 1,000 mg PO Q12HR [facility] Stop: 05/17/19 18:01 Last Admin: 11/17/18 05:17 Dose: 1,000 mg Documented by: Lorazepam (Ativan) 2 mg IVP Q2HR PRN PRN Reason: Agitation Stop: 05/17/19 16:43 Last Admin: 11/16/18 03:40 Dose: 2 mg Documented by: Metoprolol Tartrate (Lopressor) 25 mg PO BID [facility] Stop: 05/19/19 10:01 Last Admin: 11/17/18 10:20 Dose: 25 mg Documented by: Naloxone HCl (Narcan) 0.4 mg IVP Q2MPRN PRN PRN Reason: SEE COMMENTS Stop: 05/17/19 14:50 Topiramate (Topamax) 100 mg PO TID [facility] Stop: 05/17/19 16:01 Last Admin: 11/17/18 07:59 Dose: 100 mg Documented by: - EKG Interpretation EKG results cardiology: sinus rhythm, no diagnostic ischemia Consult Discharge Plan - Plan Referrals: Corbin Valiente [Primary Care Provider] - CHADS2-VASC Score - Score Age: Less than 65 Sex: Female CHF History: No Stroke/TIA/Thromboembolism Hx: No Vascular disease history: No Diabetes history: No Score: 1 HAS-BLED Score - Score Medication usage predisposing to bleeding: Antiplatelet agents, NSAIDs, Anticoagulants Score: 1 <Jamshid Carrillo - Last Filed: 11/17/18 13:33> Date of Encounter: 11/17/18 - Attending Attestation I have personally performed a face to face evaluation on this patient. I have reviewed and agree with the care plan. History and Exam by me shows: 58-year-old female presents with multiple psychiatric conditions status post extubation found to have Long QTC likely secondary to hypokalemia which corrected post-electrolyte supplementation. Patient also noted to have paroxysmal atrial fibrillation resolved with IV Cardizem. Patient would likely benefit from rate controlling medications and aspirin due to a low risk for stroke. Patient will follow-up with A. fib clinic as an outpatient Assessment and Plan Discussion w patient/family: The assessment and plan as outlined above was discussed with the patient and/or family members who expressed understanding and agreement. All questions were answered. Thank you for involving us in the care of your patient. Please call with any questions. History of Present Illness History of present illness: Ms. Flores is a 58 year old female All Systems Review: The remainder of the systems were reviewed and are negative Physical Examination Vital Signs, Last 4 Hours Temp Pulse Resp BP Pulse Ox 11/17/18 12:03 98.4 F 11/17/18 12:00 78 11/17/18 11:26 15 100 11/17/18 11:00 85 20 132/82 80 11/17/18 10:00 78 20 96 Results 11/17/18 04:09 11/17/18 12:40 Lab Results 11/17/18 11/17/18 11/17/18 04:09 04:09 08:56 WBC 7.4 Hgb 9.7 L D Hct 27.9 L Plt Count 156 Sodium 137 137 Potassium 2.9 L 3.0 L Chloride 108 H 108 H Carbon Dioxide 23 21 L BUN 6 4 L Creatinine 0.58 L 0.61 Glucose 103 111 H Calcium 7.5 L 7.5 L Magnesium 1.6 11/17/18 12:40 WBC Hgb Hct Plt Count Sodium 136 Potassium 3.8 D Chloride 110 H Carbon Dioxide 21 L BUN 3 L Creatinine 0.58 L Glucose 107 H Calcium 7.6 L Magnesium
[2018-11-17 13:13] LABS: BUN/Creatinine Ratio 5 (6-26); Blood Urea Nitrogen 3 mg/dL (6-20); Calcium 7.6 mg/dL (8.6-10.3); Carbon Dioxide 21 mEq/L (23-29); Chloride 110 mEq/L (98-107); Glucose 107 mg/dL (70-105); Osmolality,Calculated 279 (280-300); Potassium 3.8 mEq/L (3.5-5.1); Sodium 136 mEq/L (136-145); eGFR For African Americans > 60 (> 60); eGFR For Non-African Americans > 60 (> 60)
--- NOTE | 2018-11-17 15:09 | Electrocardiograph Report ---
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
--- NOTE | 2018-11-17 16:17 | Electrocardiograph Report ---
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
--- NOTE | 2018-11-17 16:22 | Electrocardiograph Report ---
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
[2018-11-17] MEDS ORDERED: Saline Nasal Spray 44 ML BOTTLE NS PRN (20:05)
[2018-11-18] MEDS: Ipratropium/Albuterol Neb 3 ML IH SCH ×4 (00:07→11:08)
[2018-11-18] MEDS ORDERED: Acetaminophen 325 MG TABLET PO PRN (04:40)
[2018-11-18] MEDS: *HR* Heparin 5,000 UNIT/ML VIAL SQ SCH (05:58)
[2018-11-18] MEDS: levETIRAcetam 250 MG TABLET PO SCH (05:59)
[2018-11-18 07:40] VITALS: BP 130/80
[2018-11-18] MEDS: Topiramate 100 MG TABLET PO SCH (08:35)
[2018-11-18 08:54] LABS: Hematocrit 28.8 % (35.3-44.9); Hemoglobin 9.9 g/dL (11.5-15.4); Mean Corpuscular HGB Conc 34.4 g/dL (31.6-35.5); Mean Corpuscular Hemoglobin 30.6 pg (28.0-33.3); Mean Corpuscular Volume 88.9 fL (83.0-100.0); Mean Platelet Volume 8.8 fL (9.4-12.4); Platelet Count 168 K/mcL (140-400); Red Blood Count 3.24 M/mcL (3.82-4.97); White Blood Count 5.9 K/mcL (4.3-11.1)
[2018-11-18] MEDS ORDERED: Aspirin Enteric Coated 81 MG Tablet PO SCH (09:00)
--- NOTE | 2018-11-18 09:03 | Discharge Summary ---
Orders not resulted at time of discharge: Pending orders 11/15/18 11:33 Culture,Blood [BC] Stat Date of Encounter: 11/18/18 Time of Encounter: 09:01 - Discharge Diagnosis (1) Altered mental status Priority: Secondary Status: Resolved Assessment and Plan: secondary to status epilepticus Qualifiers: Altered mental status type: unspecified Qualified Code(s): R41.82 - Altered mental status, unspecified (2) Medical non-compliance Priority: Secondary Status: Chronic (3) Acute respiratory failure, unspecified whether with hypoxia or hypercapnia Priority: Secondary Status: Resolved Qualifiers: Respiratory failure complication: unspecified whether with hypoxia or hypercapnia Qualified Code(s): J96.00 - Acute respiratory failure, unspecified whether with hypoxia or hypercapnia (4) Hypokalemia Priority: Secondary Status: Resolved (5) Seizures Priority: Secondary Status: Resolved (6) Status epilepticus Priority: Primary Status: Resolved (7) Atrial fibrillation Priority: Secondary Status: Acute Qualifiers: Atrial fibrillation type: paroxysmal Qualified Code(s): I48.0 - Paroxysmal atrial fibrillation Hospital course: Ms. Flores is a 58 year old female known history of seizure disorder with internal vagal stimulator device on Trileptal, Topamax, Keppra, hypertension and anxiety/depression. Patient brought to the hospital due to an witnessed seizure secondary to medication non-compliance. Per patient's she has not taken her medications for 3 days. In the ED patient was found to be on status epilecticus, intubated, sedated and transferred to the ICU. CT/CT head/brain wo con IMPRESSION: No acute intracranial abnormality. CT/CT cervical spine wo con IMPRESSION: No acute abnormality of the cervical spine. Patient suscessfully extubated, AOx3, no more seizures like activities during hospitalization. During this admission the patient had an episode of A.fib with RvR which responded to IV bb, and electrolyte replacement. Cardiology evaluated the patient recommended to continue oral bb and Aspirin CHADSVASC score of 1. Patient is clinically stable to be discharged home. Recommended to follow up with neurology and cardiology as outpatient. - Time Spent with Patient Total time spent providing and/or coordinating discharge services: Time spent: Greater than 30 minutes (35) - Discharge Medications Prescriptions: Yann Aspirin Enteric Coated [Aspirin EC] 81 mg PO DAILY 30 Days #30 tablet. Metoprolol [Lopressor] 25 mg PO BID 30 Days #60 tablet Continued Paroxetine HCl [Paxil] 40 mg PO DAILY Lovastatin [Mevacor] 20 mg PO HS Bisoprolol/Hydrochlorothiazide [Bisoprolol-Hctz 10-6.25 mg Tab] 1 each PO DAILY LevETIRAcetam [Keppra] 1,000 mg PO BID 30 Days #60 tablet Topiramate [Topamax] 100 mg PO TID 30 Days #90 tablet Discontinued OXcarbazepine [Trileptal] 600 mg PO BID Home Medications: Bisoprolol/Hydrochlorothiazide [Bisoprolol-Hctz 10-6.25 mg Tab] 1 each PO DAILY 11/15/18 [History] Lovastatin [Mevacor] 20 mg PO HS 11/15/18 [History] Paroxetine HCl [Paxil] 40 mg PO DAILY 11/15/18 [History] Aspirin Enteric Coated [Aspirin EC] 81 mg PO DAILY 30 Days #30 tablet. 11/18/18 [Rx] LevETIRAcetam [Keppra] 1,000 mg PO BID 30 Days #60 tablet 11/18/18 [Rx] Metoprolol [Lopressor] 25 mg PO BID 30 Days #60 tablet 11/18/18 [Rx] Topiramate [Topamax] 100 mg PO TID 30 Days #90 tablet 11/18/18 [Rx] Allergies/Adverse Reactions: 3 Allergy/AdvReac Type Severity Reaction Status Date / Time No Known Allergies Allergy Verified 02/08/15 18:26 Date of admission: 11/15/18 13:51 Primary care physician: Corbin Valiente Consults: 11/15/18 15:44 Consult to Cardiology [CONS] Stat Comment: Consulting Provider: Cardiology Lizzeth Reason for Consult: Prolonged QT syndrome in the setting of status epilepticus Time Notified: 15:45 Call Completed: Yes 11/15/18 16:46 Consult to Interpret Exam [CONS] Routine Consulting Provider: Hayde Velazquez I Consult to Interpret Exam: Interpret EEG 11/15/18 17:38 Consult to Nutrition [CONS] Routine Comment: Consulting Provider: NUTRITION Reason for Dietary Consult: Diet Education 11/15/18 18:46 Consult to [employer] [CONS] Routine Reason for SW Consult: Help with perscribtion drug cost. Patient's meds cost $800 a month. Patient sometimes goes without meds d/t cost. 11/16/18 12:13 Consult to Interpret Exam [CONS] Routine Consulting Provider: Hayde Velazquez I Consult to Interpret Exam: Interpret EEG 11/17/18 08:28 Consult to Invasive Line Access Team [CONS] Routine Reason for Consult: poor access Line Type: EPIV 11/17/18 09:46 Consult to Cardiology [CONS] Stat Comment: Consulting Provider: Cardiology Lizzeth Reason for Consult: a-FIB WITH RVR Time Notified: 09:46 Call Completed: Yes - Constitutional Vitals: Temp Pulse Resp BP Pulse Ox 97.9 F 79 16 130/80 98 11/18/18 07:33 11/18/18 07:33 11/18/18 07:33 11/18/18 07:33 11/18/18 07:33 Exam: Vitals: Reviewed General: Alert and oriented x3. In no acute distress Skin: Normal color, no rash, no lesions. HEENT: EOM, pupils equal, round and reactive. Cardiovascular: RRR, normal S1 & S2, no rubs, murmurs or gallops. Lungs: CTA b/l, no wheezes or crackles. Abdomen: Soft, non-tender, no rigidity. Extremities: No deformity, no edema or tenderness, no joint swelling or clubbing. Neurological: No focal neurological abnormalities. Rest of the physical exam is non contributory - Patient Status Disposition: Home, Self-Care Condition: Good Functional capacity at discharge: independent ambulation Overall status at discharge: patient is back to baseline - Discharge Instructions Instructions: Atrial Fibrillation (DC), Acute Respiratory Distress Syndrome (DC), Non-epileptic Seizures (DC) Follow Up With: Corbin Valiente [Primary Care Provider] - (please call to make an appointment for next week. ) - Diet and Activity Activity: resume usual activities as tolerated Diet: low salt diet
[2018-11-18 09:15] LABS: BUN/Creatinine Ratio 9 (6-26); Blood Urea Nitrogen 6 mg/dL (6-20); Calcium 8.5 mg/dL (8.6-10.3); Carbon Dioxide 22 mEq/L (23-29); Chloride 107 mEq/L (98-107); Glucose 101 mg/dL (70-105); Magnesium 1.8 mg/dL (1.6-2.6); Osmolality,Calculated 278 (280-300); Phosphorous 2.8 mg/dL (2.7-4.5); Potassium 3.8 mEq/L (3.5-5.1); Sodium 135 mEq/L (136-145); eGFR For African Americans > 60 (> 60); eGFR For Non-African Americans > 60 (> 60)
--- NOTE | 2018-11-18 09:18 | Neurology Progress Note ---
<Billy Marion J - Last Filed: 11/18/18 09:10> Date of Encounter: 11/18/18 Time of Encounter: 09:10 Assessment and Plan (1) Unresponsive Current Visit: Yes Status: Acute (2) Seizures Current Visit: Yes Status: Resolved Ms. tadeo is seen in follow-up for seizures. Etiology of her seizures is medication noncompliance. Both Keppra and Topamax have been restarted and the patient has not had any return of seizure activity. Clinically, she remained stable from neurology's perspective does not have any focal deficits on exam. At this juncture we are recommending that she continue Keppra and Topamax at her home dose upon discharge. Please ensure neurology follow-up at discharge. Neurology will sign off at this time. Please call should any urgent needs arise, thank you for consulting [place] [facility] Subjective Principal diagnosis: Seizures Interval history: The patient was seen in follow-up for seizures. His home seizure medications of Keppra and Topamax have been restarted. The return of seizure activity since admission. Clinically, she remained stable without any further neurological d eficits. Discussed medication compliance and listed modifications. Also discussed the need for neurology follow-up upon discharge. Objective - Constitutional Vitals: Temp Pulse Resp BP Pulse Ox 97.9 F 79 16 130/80 98 11/18/18 07:33 11/18/18 07:33 11/18/18 07:33 11/18/18 07:33 11/18/18 07:33 Exam: Examination: General Examination: *CONSTITUTIONAL: Alert and oriented x3, no acute distress *GENERAL APPEARANCE OF PATIENT appears healthy and well groomed *EYES: pupils equal, round, reactive to light and accommodation, conjunctiva clear without masses or ulcerations, fundi normal. *CARDIOVASCULAR: RRR, S1, S2, no mumurs, rubs, or gallops, no peripheral edema, distal temperature normal, dorsalis pedis pulses normal. Refer to vital signs * MUSCULOSKELETAL: *GAIT AND STATION: normal, with normal Romberg testing, no abnormalities such as broad base gait or spasticity *ASSESSMENT OF MUSCLE STRENGTH IN THE UPPER AND LOWER EXTREMITIES bilateral deltoid, bicep, tricep, publicity person strength, hip flexors ,anterior tibialis, dorsoflexion of the foot 5/5 *MUSCLE TONE IN THE UPPER AND LOWER EXTREMITIES normal. No abnormal move ments, fasciculations or atrophy identified. Neurological: *ORIENTATION to person, situation, time and place *LANGUAGE AND FUNCTION no significant aphasia or dysarthia was noted. *ATTENTION AND CONCENTRATION are normal *LANGUAGE FUNCTION no significant aphasia or dysarthia was noted. *FUND OF KNOWLEDGE aware of current events, past history, vocabulary *MENTAL attention span and concentration normal. *CN II optic fundi were normal, no papilledema noted. *CN III,IV, PERRLA extraocular eye movements were full, no nystagmus and no ptosis noted. *CN V shows normal sensation and jaw opens symmetrically. *CN VII shows normal facial movement symmetrically, upper and lower bilaterally. *CN VIII shows no significant hearing loss on exam *CN IX-Xpalate elevated symmetrically *CN XI normal strength in the sternocleidomastoid muscles, symmetrical shoulder shrugging. *CN XII tongue protruded in the midline, with normal strength and movement. *CEREBELLAR TESTING normal finger to nose, heel/knee/marin *PAIN LEVEL 0/10 Results - Laboratory Findings CBC and BMP: 11/18/18 08:44 11/17/18 12:40 Abnormal lab findings: Abnormal lab results WBC 11.6 K/mcL (4.3-11.1) H 11/15/18 10:48 RBC 3.24 M/mcL (3.82-4.97) L 11/18/18 08:44 Hgb 9.9 g/dL (11.5-15.4) L 11/18/18 08:44 Hct 28.8 % (35.3-44.9) L 11/18/18 08:44 MPV 8.8 fL (9.4-12.4) L 11/18/18 08:44 ABG pCO2 31 mmHg (35-45) L 11/16/18 04:44 ABG pO2 129 mmHg (85-104) H 11/16/18 04:44 ABG HCO3 19 mEq/L (21-27) L 11/16/18 04:44 ABG O2 Saturation 99 % (95-98) H 11/16/18 04:44 ABG Base Excess -5 mEq/L (-2 to 3) L 11/16/18 04:44 Sodium 135 mEq/L (136-145) L 11/16/18 03:53 Potassium 3.0 mEq/L (3.5-5.1) L 11/17/18 08:56 Chloride 110 mEq/L (98-107) H 11/17/18 12:40 Carbon Dioxide 21 mEq/L (23-29) L 11/17/18 12:40 BUN 3 mg/dL (6-20) L 11/17/18 12:40 Creatinine 0.58 mg/dL (0.60-1.20) L 11/17/18 12:40 Est GFR (Non-Af Amer) 55 (> 60) L 11/15/18 10:48 BUN/Creatinine Ratio 5 (6-26) L 11/17/18 12:40 Glucose 107 mg/dL (70-105) H 11/17/18 12:40 POC Glucose 112 mg/dL (70-99) H 11/16/18 11:58 Calculated Osmolality 279 (280-300) L 11/17/18 12:40 Lactic Acid 2.9 mmol/L (0.5-2.2) H 11/15/18 15:51 Calcium 7.6 mg/dL (8.6-10.3) L 11/17/18 12:40 Serum Total Protein 6.2 g/dL (6.4-8.9) L 11/16/18 03:53 Urine Clarity Turbid (Clear) A 11/15/18 11:20 Urine Protein >=300 mg/dL (Neg-Trace) H 11/15/18 11:20 Urine Blood Large (Negative) H 11/15/18 11:20 Urine Bilirubin Small (Negative) H 11/15/18 11:20 Urine Microscopic WBC 5-15 per hpf (0-3) H 11/15/18 11:20 Ur Squamous Epith Cells Many per lpf (None-Few) H 11/15/18 11:20 Hyaline Casts Moderate per lpf (None-Few) H 11/15/18 11:20 Ur Culture Indicated? YES (NO) A 11/15/18 11:20 Salicylates < 2.5 mg/dL (15.0-30.0) L 11/15/18 11:45 Acetaminophen < 10 mcg/mL (10-20) L 11/15/18 11:45 Carbamazepine < 1 mcg/mL (4-12) L 11/15/18 15:51 Levetiracetam < 3 mcg/mL (6-46) L 11/15/18 15:51 U Marijuana (THC) Screen Positive ng/mL (Cutoff = 50) H 11/15/18 11:20 Consult Discharge Plan - Plan Instructions: Metoprolol (By mouth), Aspirin (By mouth), Topiramate (By mouth), Levetiracetam (By mouth), Atrial Fibrillation (DC), Acute Respiratory Distress Syndrome (DC), Non-epileptic Seizures (DC) Referrals: Corbin Valiente [Primary Care Provider] - 11/30/18 2:20 pm (please keep appointment) Prescriptions: Aspirin Enteric Coated [Aspirin EC] 81 mg PO DAILY 30 Days #30 tablet. LevETIRAcetam [Keppra] 1,000 mg PO BID 30 Days #60 tablet Metoprolol [Lopressor] 25 mg PO BID 30 Days #60 tablet Topiramate [Topamax] 100 mg PO TID 30 Days #90 tablet <Hayde Velazquez I - Last Filed: 11/18/18 11:28> Date of Encounter: 11/18/18 Assessment and Plan (1) Unresponsive Current Visit: Yes Status: Acute (2) Seizures Current Visit: Yes Status: Resolved I have personally performed a face to face diagnostic evaluation, including HPI, EXAM, which is included in the Assesment and plan, which was discussed with Billy Marion CNP, I agree with the above outlined documentation. Medically much better stable suggest continue on Topamax and Keppra Okay to discharge from neurology standpoint follow-up with Dr. Morgan in 3-4 weeks Hayde Velazquez MD. Neurology Objective - Constitutional Vitals: Temp Pulse Resp BP Pulse Ox 97.9 F 79 16 130/80 98 11/18/18 07:33 11/18/18 07:33 11/18/18 11:08 11/18/18 07:33 11/18/18 11:08 Results - Laboratory Findings CBC and BMP: 11/18/18 08:44 11/18/18 08:44 Abnormal lab findings: Abnormal lab results WBC 11.6 K/mcL (4.3-11.1) H 11/15/18 10:48 RBC 3.24 M/mcL (3.82-4.97) L 11/18/18 08:44 Hgb 9.9 g/dL (11.5-15.4) L 11/18/18 08:44 Hct 28.8 % (35.3-44.9) L 11/18/18 08:44 MPV 8.8 fL (9.4-12.4) L 11/18/18 08:44 ABG pCO2 31 mmHg (35-45) L 11/16/18 04:44 ABG pO2 129 mmHg (85-104) H 11/16/18 04:44 ABG HCO3 19 mEq/L (21-27) L 11/16/18 04:44 ABG O2 Saturation 99 % (95-98) H 11/16/18 04:44 ABG Base Excess -5 mEq/L (-2 to 3) L 11/16/18 04:44 Sodium 135 mEq/L (136-145) L 11/18/18 08:44 Potassium 3.0 mEq/L (3.5-5.1) L 11/17/18 08:56 Chloride 110 mEq/L (98-107) H 11/17/18 12:40 Carbon Dioxide 22 mEq/L (23-29) L 11/18/18 08:44 BUN 3 mg/dL (6-20) L 11/17/18 12:40 Creatinine 0.58 mg/dL (0.60-1.20) L 11/17/18 12:40 Est GFR (Non-Af Amer) 55 (> 60) L 11/15/18 10:48 BUN/Creatinine Ratio 5 (6-26) L 11/17/18 12:40 Glucose 107 mg/dL (70-105) H 11/17/18 12:40 POC Glucose 112 mg/dL (70-99) H 11/16/18 11:58 Calculated Osmolality 278 (280-300) L 11/18/18 08:44 Lactic Acid 2.9 mmol/L (0.5-2.2) H 11/15/18 15:51 Calcium 8.5 mg/dL (8.6-10.3) L 11/18/18 08:44 Serum Total Protein 6.2 g/dL (6.4-8.9) L 11/16/18 03:53 Urine Clarity Turbid (Clear) A 11/15/18 11:20 Urine Protein >=300 mg/dL (Neg-Trace) H 11/15/18 11:20 Urine Blood Large (Negative) H 11/15/18 11:20 Urine Bilirubin Small (Negative) H 11/15/18 11:20 Urine Microscopic WBC 5-15 per hpf (0-3) H 11/15/18 11:20 Ur Squamous Epith Cells Many per lpf (None-Few) H 11/15/18 11:20 Hyaline Casts Moderate per lpf (None-Few) H 11/15/18 11:20 Ur Culture Indicated? YES (NO) A 11/15/18 11:20 Salicylates < 2.5 mg/dL (15.0-30.0) L 11/15/18 11:45 Acetaminophen < 10 mcg/mL (10-20) L 11/15/18 11:45 Carbamazepine < 1 mcg/mL (4-12) L 11/15/18 15:51 Levetiracetam < 3 mcg/mL (6-46) L 11/15/18 15:51 U Marijuana (THC) Screen Positive ng/mL (Cutoff = 50) H 11/15/18 11:20
[2018-11-18] MEDS ORDERED: *HR* Rocuronium Bromide 100 MG/10 ML VIAL IVC ONE (12:03)
[2018-11-18] MEDS ORDERED: *HR* Etomidate 20 MG/10 ML AMPUL IVP ONE (12:03)
== END 2018-11-18 12:04 | disposition home or self-care (01) | DRG 100 ==
LOC: EMEROOARM 10:46 → ICNU 13:51 → 2NENU 11-17 16:39
PROVIDERS: ADMIT Pediatrics; ATTEND Pediatrics